=== PATIENT | male | born 1950 | race Caucasian/White ===

== ENCOUNTER 2022-02-13 07:46 | Outpatient (CLI) | payer MEDICARE, SELFPAY ==
--- NOTE | 2022-02-13 07:57 | USCV_ITS ---
Freddy Eagle Age: 71 Gender: M : 1950 Exam Date: 02/13/2022 07:59 Ordering Phys: Karla Frazier MD Technologist: [place] [facility] [place] HISTORY: Diameter (cm) AP x Transverse x Length Velocity (cm/s) Waveform Prox Aorta: x x Mid Aorta: 1.87 x 2.06 x Triphasic Distal Aorta: 1.69 x 1.78 x Triphasic Right Iliac Prox: 1.04 x 1.28 x Triphasic Left Iliac Prox: 1.11 x 1.17 x Triphasic Stent Prox Landing x x Aneurysmal Sac Max x x Lt Lat Sac Dim Rt Lat Sac Dim Stent Dist Landing x x Right Iliac Stent x x Left Iliac Stent x x Right Renal Art Left Renal Art FINDINGS: normal screening ao, prx ao not seen due to gas CONCLUSIONS No evidence of abdominal aortic or bilateral iliac aneurysm. Proximal aortal not well visualized due to bowel gas Franco Fragoso MD (Electronically Signed) Final Date: 13 February 2022 18:01 S
== END 2022-02-13 07:47 | disposition home or self-care (01) ==
LOC: RAD 07:47
PROVIDERS: PCP Family Medicine; Visit Provider Family Medicine
DX: Z13.6 Encounter for screening for cardiovascular disorders (principal)
CPT/HCPCS: 76706

== ENCOUNTER 2022-03-15 11:17 | Observation (INO) | payer MEDICARE, SELFPAY ==
[2022-03-15] VITALS (25 sets, daily range): BP systolic 125–224; BP diastolic 69–94; PULSE 62–99; RESP 14–30; TEMP 36.4–39; O2SAT 91–100; BMI 30.7
--- NOTE | 2022-03-15 11:42 | ECG_ITS ---
[facility] Test Date: 2022-03-15 Pat Name: Freddy Eagle Department: Room: Gender: Male Territory Account Manager: : 1950 Requested By: Raciel Soliman Order Number: [id number] Oh MD: Ellie Bailey M.D. Measurements Intervals [place] Rate: 64 P: 48 [place]: 188 QRS: 5 QRSD: 87 T: -10 QT: 414 QTc: 430 Interpretive Statements SINUS RHYTHM WITH FREQUENT VENTRICULAR PREMATURE COMPLEXES POSSIBLE LEFT ATRIAL ENLARGEMENT [-0.1mV P-WAVE IN V1/V2] POSSIBLE RIGHT VENTRICULAR CONDUCTION DELAY [RSR (QR) IN V1/V2] NONSPECIFIC T-WAVE ABNORMALITY ABNORMAL RHYTHM ECG Compared to ECG 08/03/2014 05:31:35 Ventricular premature complex(es) now present T-wave abnormality now present Electronically Signed On 03-16-2022 12:33:15 PRINT CUTTER by Ellie Bailey M.D. [email or web address].[employer]/store/NU/[id number] f
--- NOTE | 2022-03-15 11:53 | CT_ITS ---
WS: [id number] CT ABDOMEN AND PELVIS WITH CONTRAST HISTORY: RLQ abdominal pain TECHNIQUE: Imaging performed of the abdomen and pelvis with IV contrast. Single phase imaging of the abdomen. Coronal and sagittal reformats are submitted. All CT scans at [facility] use at [address] [facility] one of these dose optimization techniques: automated exposure control; mA and/or kV adjustment per patient size (includes targeted exams where dose is matched to clinical indication); or iterative re construction. IV CONTRAST: Omnipaque 350; 100 mL IV. Oral contrast: No DLP: 774.83 mGy.cm COMPARISON: None available. Lower thorax: Lung bases are clear. Heart is normal size. Moderate-sized hiatal hernia. Liver/biliary system: Normal size with no intrahepatic dilatation. Gallbladder: Normal. No gallstones or wall thickening. No pericholecystic fluid. Pancreas: Normal size pancreas and pancreatic duct. No adjacent inflammation. Spleen: Normal size spleen. No mass or infarct. Adrenal glands: Normal. Right kidney: Too small to characterize hypodensities. No obstruction or solid mass. Left kidney: Tiny cortical hypodensities. No obstruction or mass. Aorta: Mild atherosclerosis with no aneurysm. Lymphadenopathy: None. Free fluid: None. GI tract: Acute inflammatory process in the RIGHT lower quadrant. The appendix is dilated measuring u p to 1.3 cm in diameter with moderate periappendiceal inflammatory changes. At the base of the append ix there is a 3 mm calcification. At the base of the appendix there is inflammatory process in the vi sualized cecum and mild thickening of the distal terminal ilium. No abscess or free air. Numerous diverticula throughout the colon. Mildly tortuous colon. Abdominal wall: Unremarkable abdominal wall. No hernia. Pelvis: Well-distended urinary bladder. Bilateral inguinal canals are patent and contains fat. Mild p rostate enlargement. Bones: Unremarkable. CT/CT abdomen pelvis w con* [id number] IMPRESSION: 1. Acute appendicitis with significant periappendiceal inflammatory changes. N o abscess. Small appendicolith at the base of the appendix with associated mild inflammation involving the terminal ilium and also the adjacent cecum. 2. Moderate size hiatal hernia. Notified Raciel Soliman at 03/15/2022 2:36 PM.
--- NOTE | 2022-03-15 11:57 | ED_ITS ---
HPI - Abdominal Pain General: Chief Complaint: Abdominal Pain Stated Complaint: abd/chest pain Time Seen by Provider: 03/15/22 11:44 History of Present Illness: 71-year-old male presents emergency department chief complaint of 2 to 3-day history of progressive abdominal pain that init iated around his umbilicus that is now in the right lower quadrant. Patient reports he has some mild nausea with the pain does not report any diarrhea or constipation reports no fevers or chills. Patient does report he still has his appendix reports no prior history of any intra-abdominal surgeries. Patient presents with his to the ER for further assessment management. Associated Symptoms: Reports heartburn and nausea; Denies chills and fever(s) Review of Systems Const: Denies: fever(s) or chills Card: Denies: chest pain, irregular heart rhythm, swelling of feet/ankles, lightheadedness or dyspnea on exertion Resp: Denies: non-productive cough or wheezing GI: Reports: abdominal pain, nausea and heartburn Musc: Reports: joint pain; Denies: back pain Neuro: Denies: headache(s) or dizziness [place]/Lymph: Denies: easy bruising or easy bleeding PFSH ED PFSH: Medical History Glucose intolerance Myocardial infarction Surgical History S/P PTCA (percutaneous transluminal coronary angioplasty) Family History Other Cancer Social History Smoking and tobacco status: former smoker Household members: spouse Marital status: service: No Current occupational status: retired Current occupation: FIRE DEPARTMENT Physical Exam Const: COMMON NORMALS: patient oriented x3 and healthy appearing; apparent distress (Patient appears to be in moderate distress due to pain) HENMT: COMMON NORMALS: normocephalic and atraumatic HEAD & SCALP: normocephalic and atraumatic Eye: COMMON NORMALS: Equal, round and reactive pupils present and EOMs intact bilaterally PUPIL: Yes Equal, round and reactive pupils present Neck/C-Spine: COMMON NORMALS: full ROM, supple and no JVD Lymph: LYMPHATIC: no lymphadenopathy noted Chest: COMMONS NORMALS: normal inspection of the chest and normal palpation of entire chest wall Resp: COMMON NORMALS: normal respiratory effort, No retractions and clear to auscultation bilaterally EFFORT & INSPECTION: Yes able to speak in complete sentences and Yes symmetric chest movement AUSCULTATION: clear to auscultation bilaterally Cardio: COMMON NORMALS: no JVD, regular rate and regular rhythm RATE: regular rate RHYTHM: regular rhythm GI: OTHER: Patient is moderate right lower quadrant abdominal pain periumbilical abdominal pain with no radiation to palpation with guarding and rebound tenderness apprec iated positive McBurney's point tenderness appreciated : COMMON NORMALS: Yes no CVA tenderness BLADDER/KIDNEY EXAM: Yes no CVA tenderness Back/Pelvis: COMMON NORMALS: no CVA tenderness Extremity: COMMON NORMALS: normal to inspection and full ROM Neuro: COMMON NORMALS: patient oriented x3, CN's II-XII intact bilaterally, moves all extremities and no focal motor deficits Psych: COMMON NORMALS: mental status grossly normal, Normal thought process present, cooperative and normal affect THOUGHT PROCESS: Normal thought process present Skin: COMMON NORMALS: no rashes or lesions noted GENERAL SKIN EXAM: no rashes or lesions noted Course Vital Signs: Vital signs: Vital Signs Temperature 97.6 F 03/15/22 11:28 Pulse Rate 82 03/15/22 14:45 Respiratory Rate 20 H 03/15/22 14:44 Blood Pressure 170/85 03/15/22 11:28 Pulse Oximetry 95 03/15/22 14:45 Oxygen Delivery Me thod 03/15/22 14:45 MDM - Abdominal Pain Medical Decision Making Due to the patient's symptoms and condition IV will be established labwork im aging will be obtained medication will provide if the patient's pain and nausea CT imaging with labwork will be obtained to further rule out potential underlying concerns of acute appendicitis versus other intraperitoneal issue, will continue to follow Patient was found to have acute appendicitis 1.3 mm dilated appendix with appendicolith at the base with surrounding inflammatory change discussed patient's case with Dr. Floyd will be taking him to surgery patient was provided Zosyn prior to the formal CT results in whichhe was also provided several doses of IV pain medications. Lab Data 03/15/22 12:20 03/15/22 12:20 Labs/Radiology: Radiology Impressions Abdomen/Pelvis CT 03/15/22 11:53 IMPRESSION: 1. Acute appendicitis with significant periappendiceal inflammatory changes. No abscess. Small appendicolith at the base of the appendix with associated mild inflammation involving the terminal ilium and also the adjacent cecum. 2. Moderate size hiatal hernia. Notified Raciel Soliman at 03/15/2022 2:36 PM. Laboratory Results WBC 16.7 10^3/uL (4.0-10.0) H 03/15/22 12:20 RBC 4.75 10^6/uL (4.1-5.3) 03/15/22 12:20 Hgb 14.3 g/dL (11.7-16.6) 03/15/22 12:20 Hct 44.5 % (42.0-52.0) 03/15/22 12:20 MCV 93.7 fl (80-94) 03/15/22 12:20 MCH 30.1 pg (28.0-34.0) 03/15/22 12:20 MCHC 32.1 g/dL (30.0-36.0) 03/15/22 12:20 RDW 12.1 % (12.1-15.1) 03/15/22 12:20 Plt Count 273 10^3/cmm (130-400) 03/15/22 12:20 MPV 9.4 fL (7.4-10.4) 03/15/22 12:20 Neut % (Auto) 88.1 % 03/15/22 12:20 Lymph % (Auto) 7.7 % 03/15/22 12:20 [place] % (Auto) 3.5 % 03/15/22 12:20 Eos % (Auto) 0.0 % 03/15/22 12:20 Baso % (Auto) 0.2 % 03/15/22 12:20 Neut # (Auto) 14.73 10^3/uL (1.8-7.7) H 03/15/22 12:20 Lymph # (Auto) 1.3 10^3/uL (0.8-4.8) 03/15/22 12:20 [place] # (Auto) 0.6 10^3/uL (0.2-0.9) 03/15/22 12:20 Eos # (Auto) 0.0 10^3/uL (0.0-0.8) 03/15/22 12:20 Baso # (Auto) 0.0 10^3/uL (0.0-0.1) 03/15/22 12:20 Nucleated RBC % (auto) 0 % 03/15/22 12:20 Nucleated RBCs # 0.0 /100WBC 03/15/22 12:20 Sodium 138 mmol/L (136-145) 03/15/22 12:20 Potassium 4.4 mmol/L (3.5-5.1) 03/15/22 12:20 Chloride 103 mmol/L (98-107) 03/15/22 12:20 Carbon Dioxide 20 mmol/L (22-29) L 03/15/22 12:20 Anion Gap 19.4 (5-19) H 03/15/22 12:20 BUN 22 mg/dL (8-23) 03/15/22 12:20 Creatinine 0.7 mg/dL (0.7-1.2) 03/15/22 12:20 GFR Calculation 111.8 mL/min (90-130) 03/15/22 12:20 Glucose 136 mg/dL (65-115) H 03/15/22 12:20 Calculated Osmolality 291 mOsm/kg (285-295) 03/15/22 12:20 Lactate 3.0 mmol/L (0.5-2.2) H 03/15/22 12:20 Calcium 9.7 mg/dL (8.5-10.5) 03/15/22 12:20 Total Bilirubin 0.6 mg/dL (0.15-1.2) 03/15/22 12:20 AST 20 U/L (0-40) 03/15/22 12:20 ALT 12 U/L (0-41) 03/15/22 12:20 Alkaline Phosphatase 93 U/L (40-130) 03/15/22 12:20 Troponin T Baseline 8 ng/L (0-15) 03/15/22 12:20 Troponin T 120 Minute 7.54 ng/L (0-15) 03/15/22 13:55 Delta Troponin T -0.46 ABS# (0-10) L 03/15/22 13:55 C-Reactive Protein 23.2 mg/L (0.0-4.9) H 03/15/22 12:20 NT-Pro-B Natriuret Pep 165 pg/mL (0-125) H 03/15/22 12:20 Total Protein 7.2 g/dL (6.6-8.7) 03/15/22 12:20 Albumin 4.5 g/dL (3.5-5.2) 03/15/22 12:20 Globulin 2.7 g/dL (1.3-4.6) 03/15/22 12:20 Lipase 19 U/L (13-60) 03/15/22 12:20 Urine Color Yellow (Yellow) 03/15/22 14:09 Urine Appearance Clear (CLEAR) 03/15/22 14:09 Urine pH 5 (5-7) 03/15/22 14:09 Ur Specific [place] 1.025 (1.005-1.030) 03/15/22 14:09 Urine Protein Neg (Negative) 03/15/22 14:09 Urine Glucose (UA) Norm (Normal) 03/15/22 14:09 Urine Ketones Negative (Negative) 03/15/22 14:09 Urine Blood Neg (Negative) 03/15/22 14:09 Urine Nitrate Negative (Negative) 03/15/22 14:09 Urine Bilirubin Neg (Negative) 03/15/22 14:09 Urine Urobilinogen Norm mg/dL (Negative) 03/15/22 14:09 Ur Leukocyte Esterase Negative (Negative) 03/15/22 14:09 Discharge Plan Discharge Patient Disposition: Admitted As Inpatient Clinical Impression: Acute appendicitis Condition: Stable Coding Level of Care Code ED Supply Tech for Mindyg Fwd Exam Comprehensive
[2022-03-15] MEDS: fentaNYL 50 mcg/mL INJ 2mL IVP (12:12)
[2022-03-15] MEDS: ondansetron 2 mg/ML SDV 2 mL 4 MG IVP (12:14)
[2022-03-15] MEDS: sodium chloride 0.9% 500 ML IV (12:16)
[2022-03-15 12:30] LABS: Basophils % 0.2 %; Hematocrit 44.5 % (42.0-52.0); Hemoglobin 14.3 g/dL (11.7-16.6); Lymphocytes # 1.3 10^3/uL (0.8-4.8); Lymphocytes % 7.7 %; Mean Corpuscular HGB Conc 32.1 g/dL (30.0-36.0); Mean Corpuscular Hemoglobin 30.1 pg (28.0-34.0); Mean Corpuscular Volume 93.7 fl (80-94); Mean Platelet Volume 9.4 fL (7.4-10.4); Monocytes # 0.6 10^3/uL (0.2-0.9); Monocytes % 3.5 %; Neutrophils # 14.73 10^3/uL (1.8-7.7); Neutrophils % 88.1 %; Nucleated Red Blood Cells % 0 %; Platelet Count 273 10^3/cmm (130-400); Red Blood Count 4.75 10^6/uL (4.1-5.3); Red Cell Distribution Width 12.1 % (12.1-15.1); White Blood Count 16.7 10^3/uL (4.0-10.0)
[2022-03-15 12:57] LABS: Troponin(5th) Baseline 8 ng/L (0-15)
[2022-03-15 13:05] LABS: Alanine Aminotransferase 12 U/L (0-41); Albumin Level 4.5 g/dL (3.5-5.2); Alkaline Phosphatase 93 U/L (40-130); Blood Urea Nitrogen 22 mg/dL (8-23); C Reactive Protein 23.2 mg/L (0.0-4.9); Calcium 9.7 mg/dL (8.5-10.5); Carbon Dioxide 20 mmol/L (22-29); Chloride 103 mmol/L (98-107); Globulin 2.7 g/dL (1.3-4.6); Glomerular Filtration Rate 111.8 mL/min (90-130); Glucose 136 mg/dL (65-115); Lipase 19 U/L (13-60); NT Pro B Type Natriuretic Pept 165 pg/mL (0-125); Osmolality Calculated 291 mOsm/kg (285-295); Sodium 138 mmol/L (136-145); Total Bilirubin 0.6 mg/dL (0.15-1.2); Total Protein 7.2 g/dL (6.6-8.7)
[2022-03-15 13:09] LABS: Anion Gap 19.4 (5-19); Aspartate Amino Transferase 20 U/L (0-40); Potassium 4.4 mmol/L (3.5-5.1)
[2022-03-15] MEDS: morphine 4 mg/mL SDV 1 mL IVP (13:09)
[2022-03-15] MEDS: fentaNYL 50 mcg/mL INJ 2mL 86.2 MCG IVP (13:49)
[2022-03-15 14:13] LABS: Add Urine Microscopic? NO; Charge for UA Resulting for Rev
[2022-03-15 14:14] LABS: Bilirubin Urine Neg (Negative); Blood Urine Neg (Negative); Glucose Urine UA Norm (Normal); Ketones Urine Negative (Negative); Leukocyte Esterase Urine Negative (Negative); Nitrate Urine Negative (Negative); Protein Urine Neg (Negative); Specific Gravity, Urine 1.025 (1.005-1.030); Urine Appearance Clear (CLEAR); Urine Color Yellow (Yellow); Urobilinogen Urine Norm (Negative); pH Urine 5 (5-7)
[2022-03-15] MEDS: iohexol 350 mg/mL 500 mL Btl (per mL) IV (14:23)
[2022-03-15] MEDS: piperacillin-tazobactam 4.5 GM in sodium chloride 0.9% (plus) 50 ML IV (14:30)
--- NOTE | 2022-03-15 14:32 | ECG_ITS ---
[facility] Test Date: 2022-03-15 Pat Name: Freddy Eagle Department: Room: Gender: Male Aml Analyst: : 1950 Requested By: Raciel Soliman Order Number: [id number] Oh MD: Ellie Bailey M.D. Measurements Intervals [place] Rate: 90 P: 130 [place]: 177 QRS: 180 QRSD: 89 T: 136 QT: 332 QTc: 407 Interpretive Statements SINUS RHYTHM ARM LEADS REVERSED [INVERTED P AND QRS IN I] Compared to ECG 03/15/2022 11:42:15 Ventricular premature complex(es) no longer present T-wave abnormality no longer present Electronically Signed On 03-16-2022 12:45:23 ROPE COILING MACHINE OPERATOR by Ellie Bailey M.D. [email or web address]/[id number]
[2022-03-15] MEDS: HYDROmorphone 1 mg/mL INJ 1 mL IVP (14:44)
[2022-03-15 14:59] LABS: Troponin 5 2HR 7.54 ng/L (0-15)
[2022-03-15 15:09] LABS: Troponin 5 2HR Delta -0.46 ABS# (0-10)
--- NOTE | 2022-03-15 15:27 | ANES.PREANE2 ---
Pre-Anesthetic Assessment Height/Weight: Height 1.68 m Weight 86.183 kg Temp Pulse Resp BP Pulse Ox O2 Del Method 97.6 F 82 20 H 170/85 95 03/15/22 11:28 03/15/22 14:45 03/15/22 14:44 03/15/22 11:28 03/15/22 14:45 03/15/22 14:45 Operation Date: 03/15/22 15:20 Proposed Procedures p Laparoscopic Appendectomy(Not Applicable) - Flynn Floyd DO Familial anesthetic complications: none Was Beta Jazmin taken within 24 hours: Yes Was Clonidine taken within 24 hours: N/A Social No alcohol and No tobacco Exam alert, oriented x 3, clear to auscultation bilaterally and regular rate & rhythm Airway Submandibular: within normal limits Cervical ROM: within normal limits Mallampati: Class II Dentition: false (upper) CV/HEM Coronary Artery Disease (PTCA 2014), Hypertension and Myocardial Infarction Metabolic Hyperlipidemia Anesthetic Plan ASA status: 3E Anesthesia: General (RSI) Medications/Allergies Home Medications Medication Instructions Recorded Confirmed Last Taken Type aspirin 81 mg tablet,delayed 81 mg PO DAILY #90 tabs 01/01/20 03/15/22 03/14/22 Rx release nitroglycerin 0.4 mg sublingual 0.4 mg sublingual Q5M PRN chest 01/01/20 03/15/22 Unknown Rx tablet (Nitrostat) pain #50 tabs clopidogrel 75 mg tablet 75 mg PO DAILY #90 tabs 07/07/20 03/15/22 03/14/22 Rx lisinopril 40 mg tablet 40 mg PO DAILY #90 tabs 07/07/20 03/15/22 03/14/22 Rx metoprolol tartrate 25 mg tablet 25 mg PO BID #180 tabs 07/07/20 03/15/22 03/14/22 Rx simvastatin 40 mg tablet 40 mg PO DAILY #90 tabs 07/07/20 03/15/22 03/14/22 Rx cholecalciferol (vitamin D3) 25 25 mcg PO DAILY 03/15/22 03/15/22 03/14/22 History mcg (1,000 unit) capsule (Vitamin D3) vitamin E 268 mg (400 unit) capsule 268 mg PO DAILY 03/15/22 03/15/22 03/14/22 History Allergies Allergy/AdvReac Type Severity Reaction Status Date / Time No Known Allergies Allergy Verified 03/15/22 13:18 [facility] Anesthesia Medical History Glucose intolerance Myocardial infarction Surgical History S/P PTCA (percutaneous transluminal coronary angioplasty) Family History Other Cancer Social History Smoking and tobacco status: former smoker Household members: spouse Marital status: service: No Current occupational status: retired Current occupation: FIRE DEPARTMENT Data Anesthesia 03/15/22 12:20 03/15/22 12:20 Short CBC 03/15/22 Range/Units 12:20 WBC 16.7 H (4.0-10.0) 10^3/uL Hgb 14.3 (11.7-16.6) g/dL Hct 44.5 (42.0-52.0) % MCV 93.7 (80-94) fl Plt Count 273 (130-400) 10^3/cmm Neut % (Auto) 88.1 % Neut # (Auto) 14.73 H (1.8-7.7) 10^3/uL BMP 03/15/22 12:20 Sodium 138 Potassium 4.4 Chloride 103 Carbon Dioxide 20 L BUN 22 Creatinine 0.7 Glucose 136 H Calcium 9.7 Cardiac Enzymes 03/15/22 03/15/22 03/15/22 Range/Units 12:20 12:20 13:55 Troponin T Baseline 8 (0-15) ng/L Troponin T 120 Minute 7.54 (0-15) ng/L Delta Troponin T -0.46 L (0-10) ABS# NT-Pro-B Natriuret Pep 165 H (0-125) pg/mL Liver Function 03/15/22 Range/Units 12:20 Total Bilirubin 0.6 (0.15-1.2) mg/dL AST 20 (0-40) U/L ALT 12 (0-41) U/L Alkaline Phosphatase 93 (40-130) U/L Albumin 4.5 (3.5-5.2) g/dL Urine 03/15/22 Range/Units 14:09 Urine Color Yellow (Yellow) Urine Appearance Clear (CLEAR) Urine pH 5 (5-7) Ur Specific [place] 1.025 (1.005-1.030) Urine Protein Neg (Negative) Urine Glucose (UA) Norm (Normal) Urine Ketones Negative (Negative) Urine Nitrate Negative (Negative) Urine Bilirubin Neg (Negative) Ur Leukocyte Esterase Negative (Negative) Coags 03/15/22 12:20 C-Reactive Protein 23.2 H Cardiac Studies: No Data to Display
--- NOTE | 2022-03-15 15:38 | PM.HP ---
Providers/Chief Complaint Admitting Physician: Dr. Flynn Floyd DO Primary Care Provider: Karla Frazier MD Chief Complaint: abd/chest pain History of Present Illness Freddy Eagle is a 71 year old male who presented to the hospital with a 2-day history of right lower quadrant abdominal pain. He reports that he has sharp right lower quadrant abdominal pain that does not radiate. Palpation makes pain worse. Nothing makes it better. He does report nausea and vomiting. Denies any fever or chills. He reports diarrhea but denies any hematochezia and/or melena. CT shows acute appendicitis with significant periappendiceal inflammation. Review of Systems General: Reports: 10 or more systems reviewed and unremarkable except in HPI and below Medications/Allergies Home Medications Medication Instructions Recorded Confirmed Last Taken Type aspirin 81 mg tablet,delayed 81 mg PO DAILY #90 tabs 01/01/20 03/15/22 03/14/22 Rx release nitroglycerin 0.4 mg sublingual 0.4 mg sublingual Q5M PRN chest 01/01/20 03/15/22 Unknown Rx tablet (Nitrostat) pain #50 tabs clopidogrel 75 mg tablet 75 mg PO DAILY #90 tabs 07/07/20 03/15/22 03/14/22 Rx lisinopril 40 mg tablet 40 mg PO DAILY #90 tabs 07/07/20 03/15/22 03/14/22 Rx metoprolol tartrate 25 mg tablet 25 mg PO BID #180 tabs 07/07/20 03/15/22 03/14/22 Rx simvastatin 40 mg tablet 40 mg PO DAILY #90 tabs 07/07/20 03/15/22 03/14/22 Rx cholecalciferol (vitamin D3) 25 25 mcg PO DAILY 03/15/22 03/15/22 03/14/22 History mcg (1,000 unit) capsule (Vitamin D3) vitamin E 268 mg (400 unit) capsule 268 mg PO DAILY 03/15/22 03/15/22 03/14/22 History Allergies Allergy/AdvReac Type Severity Reaction Status Date / Time No Known Allergies Allergy Verified 03/15/22 13:18 PFSH Acute PFSH: Medical History Glucose intolerance Myocardial infarction Surgical History S/P PTCA (percutaneous transluminal coronary angioplasty) Family History Other Cancer Social History Smoking and tobacco status: former smoker Household members: spouse Marital status: service: No Current occupational status: retired Current occupation: FIRE DEPARTMENT Vitals/I&O/Wt Last Vital Signs Temp 102.2 F H 03/15/22 15:33 Pulse 81 03/15/22 15:33 Resp 18 03/15/22 15:33 BP 143/86 03/15/22 15:33 Pulse Ox 97 03/15/22 15:33 O2 Del Method 03/15/22 15:33 03/15/22 03/15/22 03/15/22 06:59 14:59 22:59 Intake Total 500 / 500 Balance 500 / 500 Weight last 48 hrs Weight 190 lb Physical Exam Narrative: General : Patient is well developed , no acute distress, oriented x3 Head : Normal cephalic, a-traumatic. Ears : Pinnae and external canal are normal. Hearing is normal. Eyes : PERRLA, Sclera and injection are normal. No conjunctival discharge. Nose : Mucous membranes are without erythema. Throat : buccal mucosa is normal, gums are without significant recession or hypertrophy. Lungs : Equal chest rise bilaterally, no use of accessory muscles, trachea is midline. Cor : Rate and rhythm are normal. Abdomen : Soft, mild distention, tender to palpation right lower quadrant, negative Rovsing's, no g/r/m Extremities : No edema, no cyanosis or clubbing, dorsalis pedis pulses are present bilaterally, non-tender to palpation of calves. Upper extremities are normal bilaterally. Back : non-tender to palpation, no CVA tenderness. Neuro : CN II - XII intact, Upper and lower extremities have equal and full strength Data 03/15/22 12:20 03/15/22 12:20 A&P Assessment and plan (1) Acute appendicitis: Plan Laparoscopic Appendectomy The risks and benefits of the procedure, including but not limited to, bleeding, infection, scar, numbness, pain, damage to surrounding structures, conversion to an open procedure, were explained to the patient. He is understanding of the risks and wishes to proceed. Attestations Medical Necessity Statement*: Patient will require at least 1 night in the hospital for IV antibiotics Coding Level of Care Code Acute Supervisor Extruding Department for Liu Rios Diagnoses Acute appendicitis K35.80
--- NOTE | 2022-03-15 16:33 | P.OP_ITS ---
Operative Report Date of procedure: March 15, 2022 Pre-op diagnosis: Acute appendicitis Post-op diagnosis: other (Acute suppurative appendicitis) Procedure done: Laparoscopic appendectomy Specimens removed/disposition: Appendix Surgeon: Dr. Flynn Floyd DO Anesthesia: General Estimated blood loss (mL): 5 Complications: None apparent Brief History: This is a very pleasant 71-year-old gentleman who came in to the ER and was diagnosed with acute appendicitis. Laparoscopic appendectomy was indicated. The risks and benefits were explained and documented. Procedure: Patient was wheeled into the operative room and placed on the OR table in a supine position. Abdomen was inspected prepped and draped in usual sterile fashion. Time-out was performed and all present were in agreement. A 15 blade scalp was used to make a stab incision in the left upper quadrant and intra- abdominal insufflation was achieved using a Veress needle. After localizing the tissue incisions were made and a 12 millimeter trocar was placed into the umbilicus as well as a 5mm in the right lower quadrant and a 5 mm in the left lower quadrant . The appendix was identified and was severely inflamed and suppurative. I used the Voyant to ligate the mesoappendix at the base. I then used 2 PDS endo-loops to snare the base of the appendix. I then used the Voyant to ligate the appendix distally. The appendix was removed from the abdomen using an Endo-Catch bag through the umbilical incision. I examined the abdomen and no further pathology was identified. Hemostasis was noted. I then closed the umbilical site with a Malachi-Racheal and 0 Vicryl suture in a figure of 8 fashion. All ports removed. Skin was washed and dried. Incisions were closed with 4 O Vicryl in a subcuticular interrupted fashion. Skin glue was applied. Patient tolerated the procedure well.
[2022-03-15] MEDS: HYDROmorphone 1 mg/mL INJ 1 mL 0.5 MG IVP ×2 (17:00→17:09)
[2022-03-15] MEDS: HYDROcodone-acetaminophen 5-325 mg Tablet 1 TAB PO (18:28)
[2022-03-15] MEDS: pantoprazole 40 mg SDV IVP (18:29)
[2022-03-15] MEDS: heparin 5,000 unit/mL INJ 1 mL 5000 UNIT SUBCUT (18:29)
[2022-03-15] MEDS: sodium chloride 0.9% 1,000 ML 100 ML IV (18:47)
[2022-03-15] MEDS: ketorolac 30 mg/mL INJ IVP (21:25)
--- NOTE | 2022-03-15 21:38 | PC.NURSE ---
1800 Patient recieved from PACU patient on streatcher and transferred to bed with min assist. Vital signs obtained and assessment completed see flow sheets. patient resting quietly
[2022-03-16] VITALS (8 sets, daily range): BP systolic 120–158; BP diastolic 67–79; PULSE 77–90; RESP 16–18; TEMP 36.7–37.4; O2SAT 90–95
[2022-03-16] MEDS: lisinopril 20 mg Tablet 40 MG PO (01:45)
[2022-03-16] MEDS: heparin 5,000 unit/mL INJ 1 mL 5000 UNIT SUBCUT ×2 (01:45→08:38)
[2022-03-16] MEDS: HYDROcodone-acetaminophen 5-325 mg Tablet 1 TAB PO ×2 (01:50→11:30)
[2022-03-16] MEDS: sodium chloride 0.9% 1,000 ML 100 ML IV (04:16)
[2022-03-16] MEDS: ketorolac 30 mg/mL INJ IVP (05:09)
--- NOTE | 2022-03-16 06:53 | PC.NURSE ---
Report given to Janine RENAE at this time
[2022-03-16 08:25] LABS: Basophils % 0.2 %; Hematocrit 37.7 % (42.0-52.0); Hemoglobin 12.2 g/dL (11.7-16.6); Lymphocytes # 1.6 10^3/uL (0.8-4.8); Lymphocytes % 12.3 %; Mean Corpuscular HGB Conc 32.4 g/dL (30.0-36.0); Mean Corpuscular Hemoglobin 30.1 pg (28.0-34.0); Mean Corpuscular Volume 93.1 fl (80-94); Mean Platelet Volume 9.4 fL (7.4-10.4); Monocytes # 0.7 10^3/uL (0.2-0.9); Monocytes % 5.2 %; Neutrophils # 10.45 10^3/uL (1.8-7.7); Neutrophils % 81.8 %; Nucleated Red Blood Cells % 0 %; Platelet Count 240 10^3/cmm (130-400); Red Blood Count 4.05 10^6/uL (4.1-5.3); Red Cell Distribution Width 12.7 % (12.1-15.1); White Blood Count 12.8 10^3/uL (4.0-10.0)
[2022-03-16] MEDS: piperacillin-tazobactam 3.375 GM in sodium chloride 0.9% (plus) 50 ML IV (08:39)
[2022-03-16 08:55] LABS: Anion Gap 14.6 (5-19); Blood Urea Nitrogen 19 mg/dL (8-23); Calcium 8.4 mg/dL (8.5-10.5); Carbon Dioxide 23 mmol/L (22-29); Chloride 102 mmol/L (98-107); Glomerular Filtration Rate 95.8 mL/min (90-130); Glucose 142 mg/dL (65-115); Osmolality Calculated 287 mOsm/kg (285-295); Potassium 3.6 mmol/L (3.5-5.1); Sodium 136 mmol/L (136-145)
--- NOTE | 2022-03-16 11:25 | P.DS_ITS ---
Discharge Providers Date of Admission: 03/15/22 17:10 Date of Discharge: March 16, 2022 Attending Provider at Admission: Flynn Floyd DO Attending Provider at Discharge: Flynn Floyd DO Primary Care Provider: Karla Frazier MD Diagnoses at Discharge Discharge Diagnosis (1) Acute appendicitis: Status: Acute Reason for Visit Reason for Visit: abd/chest pain Hospital Course Hospital Course This is a very pleasant 71-year-old gentleman who came in and was diagnosed with acute appendicitis. He underwent laparoscopic appendectomy and was discharged home the following day in good condition. Physical Exam Narrative: General : Patient is well developed , no acute distress, oriented x3 Head : Normal cephalic, a-traumatic. Ears : Pinnae and external canal are normal. Hearing is normal. Eyes : PERRLA, Sclera and injection are normal. No conjunctival discharge. Nose : Mucous membranes are without erythema. Throat : buccal mucosa is normal, gums are without significant recession or hypertrophy. Lungs : Equal chest rise bilaterally, no use of accessory muscles, trachea is midline. Cor : Rate and rhythm are normal. Abdomen : Soft, mild distention, appropriately tender, no g/r/m Incisions intact without erythema or exudate Extremities : No edema, no cyanosis or clubbing, dorsalis pedis pulses are present bilaterally, non-tender to palpation of calves. Upper extremities are normal bilaterally. Back : non-tender to palpation, no CVA tenderness. Neuro : CN II - XII intact, Upper and lower extremities have equal and full strength Discharge Data Studies Completed and Pending Completed Studies During Hospitalization Category Date Time Status CT abdomen pelvis w con* [id number] Stat Cat Scan 03/15/22 11:53 Completed Pending at discharge Category Date Time Status Basic Metabolic Panel AM LABS Lab 03/17/22 04:00 Uncollected Basic Metabolic Panel AM LABS Lab 03/18/22 04:00 Uncollected Complete Blood Count w/Auto AM LABS Lab 03/17/22 04:00 Uncollected Complete Blood Count w/Auto AM LABS Lab 03/18/22 04:00 Uncollected Pathology: Surgical [PTH] Routine Pth 03/15/22 17:17 Ordered Radiology Impressions Abdomen/Pelvis CT 03/15/22 11:53 IMPRESSION: 1. Acute appendicitis with significant periappendiceal inflammatory changes. No abscess. Small appendicolith at the base of the appendix with associated mild inflammation involving the terminal ilium and also the adjacent cecum. 2. Moderate size hiatal hernia. Notified Raciel Soliman at 03/15/2022 2:36 PM. Laboratory Results WBC 12.8 10^3/uL (4.0-10.0) H 03/16/22 07:39 RBC 4.05 10^6/uL (4.1-5.3) L 03/16/22 07:39 Hgb 12.2 g/dL (11.7-16.6) 03/16/22 07:39 Hct 37.7 % (42.0-52.0) L 03/16/22 07:39 MCV 93.1 fl (80-94) 03/16/22 07:39 MCH 30.1 pg (28.0-34.0) 03/16/22 07:39 MCHC 32.4 g/dL (30.0-36.0) 03/16/22 07:39 RDW 12.7 % (12.1-15.1) 03/16/22 07:39 Plt Count 240 10^3/cmm (130-400) 03/16/22 07:39 MPV 9.4 fL (7.4-10.4) 03/16/22 07:39 Neut % (Auto) 81.8 % 03/16/22 07:39 Lymph % (Auto) 12.3 % 03/16/22 07:39 [place] % (Auto) 5.2 % 03/16/22 07:39 Eos % (Auto) 0.0 % 03/16/22 07:39 Baso % (Auto) 0.2 % 03/16/22 07:39 Neut # (Auto) 10.45 10^3/uL (1.8-7.7) H 03/16/22 07:39 Lymph # (Auto) 1.6 10^3/uL (0.8-4.8) 03/16/22 07:39 [place] # (Auto) 0.7 10^3/uL (0.2-0.9) 03/16/22 07:39 Eos # (Auto) 0.0 10^3/uL (0.0-0.8) 03/16/22 07:39 Baso # (Auto) 0.0 10^3/uL (0.0-0.1) 03/16/22 07:39 Nucleated RBC % (auto) 0 % 03/16/22 07:39 Nucleated RBCs # 0.0 /100WBC 03/16/22 07:39 Sodium 136 mmol/L (136-145) 03/16/22 07:39 Potassium 3.6 mmol/L (3.5-5.1) 03/16/22 07:39 Chloride 102 mmol/L (98-107) 03/16/22 07:39 Carbon Dioxide 23 mmol/L (22-29) 03/16/22 07:39 Anion Gap 14.6 (5-19) 03/16/22 07:39 BUN 19 mg/dL (8-23) 03/16/22 07:39 Creatinine 0.8 mg/dL (0.7-1.2) 03/16/22 07:39 GFR Calculation 95.8 mL/min (90-130) 03/16/22 07:39 Glucose 142 mg/dL (65-115) H 03/16/22 07:39 Calculated Osmolality 287 mOsm/kg (285-295) 03/16/22 07:39 Lactate 3.0 mmol/L (0.5-2.2) H 03/15/22 12:20 Calcium 8.4 mg/dL (8.5-10.5) L 03/16/22 07:39 Total Bilirubin 0.6 mg/dL (0.15-1.2) 03/15/22 12:20 AST 20 U/L (0-40) 03/15/22 12:20 ALT 12 U/L (0-41) 03/15/22 12:20 Alkaline Phosphatase 93 U/L (40-130) 03/15/22 12:20 Troponin T Baseline 8 ng/L (0-15) 03/15/22 12:20 Troponin T 120 Minute 7.54 ng/L (0-15) 03/15/22 13:55 Delta Troponin T -0.46 ABS# (0-10) L 03/15/22 13:55 C-Reactive Protein 23.2 mg/L (0.0-4.9) H 03/15/22 12:20 NT-Pro-B Natriuret Pep 165 pg/mL (0-125) H 03/15/22 12:20 Total Protein 7.2 g/dL (6.6-8.7) 03/15/22 12:20 Albumin 4.5 g/dL (3.5-5.2) 03/15/22 12:20 Globulin 2.7 g/dL (1.3-4.6) 03/15/22 12:20 Lipase 19 U/L (13-60) 03/15/22 12:20 Urine Color Yellow (Yellow) 03/15/22 14:09 Urine Appearance Clear (CLEAR) 03/15/22 14:09 Urine pH 5 (5-7) 03/15/22 14:09 Ur Specific [place] 1.025 (1.005-1.030) 03/15/22 14:09 Urine Protein Neg (Negative) 03/15/22 14:09 Urine Glucose (UA) Norm (Normal) 03/15/22 14:09 Urine Ketones Negative (Negative) 03/15/22 14:09 Urine Blood Neg (Negative) 03/15/22 14:09 Urine Nitrate Negative (Negative) 03/15/22 14:09 Urine Bilirubin Neg (Negative) 03/15/22 14:09 Urine Urobilinogen Norm mg/dL (Negative) 03/15/22 14:09 Ur Leukocyte Esterase Negative (Negative) 03/15/22 14:09 Procedures Performed Laparoscopic Appendectomy. Vitals Last Vital Signs Temp 98.3 F 03/16/22 08:00 Pulse 80 03/16/22 08:00 Resp 17 03/16/22 08:00 BP 120/67 03/16/22 08:00 Pulse Ox 92 03/16/22 08:00 O2 Del Method 03/16/22 08:00 O2 Flow Rate 3 03/16/22 01:02 Discharge Plan Discharge Patient Disposition: Home Condition: Stable Prescriptions: New hydrocodone-acetaminophen 7.5-325 mg tablet 1 tab PO Q6H PRN (Reason: pain) Qty: 20 0RF amoxicillin-pot clavulanate 875-125 mg tablet 1 tab PO BID Qty: 26 0RF Colace 100 mg capsule 100 mg PO BID Qty: 10 0RF Continued lisinopril 40 mg tablet 40 mg PO DAILY Qty: 90 3RF metoprolol tartrate 25 mg tablet 25 mg PO BID Qty: 180 3RF simvastatin 40 mg tablet 40 mg PO DAILY Qty: 90 3RF nitroglycerin [Nitrostat] 0.4 mg tablet, sublingual 0.4 mg SUBLINGUAL Q5M PRN (Reason: chest pain) Qty: 50 2RF Rx Instructions: do not exceed 3 doses per episode aspirin 81 mg tablet,delayed release (DR/EC) 81 mg PO DAILY Qty: 90 3RF vitamin E 268 mg (400 unit) Capsule 268 mg PO DAILY Vitamin D3 25 mcg (1,000 unit) Capsule 25 mcg PO DAILY Held clopidogrel 75 mg tablet 75 mg PO DAILY Qty: 90 3RF Hold Instructions: Resume on 03/18/22. Discharge Orders: Discharge Order (Routine); Ordered 03/16/22 Ordered By: Flynn Floyd Referrals: Flynn Floyd DO [Physician] - 2 weeks (Please call tomorrow morning to schedule a hospital follow up within 2 weeks.) Karla Frazier MD [Primary Care Provider] - 4-7 days Discharge Diet: Advance as tolerated Discharge Activity: Resume usual activity Patient Instructions: Hydrocodone/Acetaminophen (By mouth), Amoxicillin/Clavu lanate Potassium (By mouth), Laxative, Stool Softeners (By mouth), Laparoscopic Appendectomy (GEN), Opioid Safety Activity Restrictions/Additional Instructions: Do not soak incisions underwater for 2 weeks. Shower daily Discharge Attestations Time Spent in Discharge Care*: less than 30 min Quality Metrics Clinical Quality Measures [ No reported AMI, CVA or VTE this stay] Coding Level of Care Code Acute Chg FW DC note Diagnoses Acute appendicitis K35.80
--- NOTE | 2022-03-16 13:05 | ANE.PACU2 ---
Inpatient post-anesthesia follow up: Airway intact: Yes Vital signs: Temperature 98.1 F Pulse Rate 77 Respiratory Rate 17 Blood Pressure 144/71 Pulse Oximetry 92 Oxygen Delivery Me thod [ Room Air Current Rate & Del caty] Oxygen Delivery Me thod Room Air Oxygen Flow Rate [ Current Rate 2 & Delivery] Oxygen Flow Rate 3 Fraction of Inspir ed Oxygen Hydration adequate: Yes Nausea and vomiting: No Pain level: 3 Mental status: Baseline
--- NOTE | 2022-03-16 13:58 | PC.NURSE ---
5253 discharge instructions and meds for today only sent with patient. patient and voiced understanding
--- NOTE | 2022-03-16 14:04 | PC.NURSE ---
3415 patient discharged to home with patient in stable condition. patient taken to private car per wheelchair accompanied per staff
== END 2022-03-16 13:30 | disposition home or self-care (01) ==
LOC: ER 15:15 → OR 15:21 → MEDSURG 17:11
PROVIDERS: Admitting Provider Surgery; Emergency Provider Emergency Medicine; PCP Family Medicine; Visit Provider Surgery
PROC: 0DTJ4ZZ Resection of Appendix, Percutaneous Endoscopic Approach (ICD-10-PCS; CPT 44970; principal; 2022-03-15 15:00)
DX: K35.33 Acute appendicitis with perforation, localized peritonitis, and gangrene, with abscess (principal); I25.10 Atherosclerotic heart disease of native coronary artery without angina pectoris; I10 Essential (primary) hypertension; I25.2 Old myocardial infarction; E78.5 Hyperlipidemia, unspecified; Z79.82 Long term (current) use of aspirin; Z87.891 Personal history of nicotine dependence
CPT/HCPCS: 44970; 36415; 74177; 80048; 80053; 81003; 83605; 83690; 83880; 84484; 85025; 86140; 88304; 93005; 96365; 96372; 96375; 96376; 99285; C9113; G0378; J0330; J1100; J1170; J1644; J1885; J2250; J2270; J2405; J2543; J2704; J2710; J3010; J3490; J7030; J7040; Q9967

== ENCOUNTER → 2022-03-24 08:10 | Outpatient (BNVA) | payer MEDICARE, SELFPAY | PROVIDERS: PCP Family Medicine; Visit Provider Surgery | DX: Z98.890 Other specified postprocedural states (principal); Z90.49 Acquired absence of other specified parts of digestive tract | CPT/HCPCS: 99024 ==

== ENCOUNTER 2022-03-29 12:05 | Outpatient (CLI) | payer MEDICARE, SELFPAY ==
--- NOTE | 2022-03-29 12:33 | CT_ITS ---
WS: [id number] CT ABDOMEN AND PELVIS WITH CONTRAST HISTORY: ELEVATED WHITE COUNT, S/P APPENDECTOMY, LLQ TECHNIQUE: Imaging performed of the abdomen and pelvis with IV contrast. Single phase imaging of the abdomen. Coronal and sagittal reformats are submitted. All CT scans at [facility] use at [facility] one of these dose optimization techniques: automated exposure control; mA and/or kV adjustment per patient size (includes targeted exams where dose is matched to clinical indication); or iterative re construction. IV CONTRAST: Omnipaque 350; 95 mL IV. Oral contrast: No DLP: 1177.62 mGy.cm COMPARISON: 03/15/2022 Lower thorax: Lung bases are clear. Heart is normal size. Small hiatal hernia. Liver/biliary system: Normal size with no intrahepatic dilatation. Gallbladder: Normal. No gallstones or wall thickening. No pericholecystic fluid. Pancreas: Normal size pancreas and pancreatic duct. No adjacent inflammation. Spleen: Normal size spleen. No mass or infarct. Adrenal glands: Normal. Right kidney: Normal size. A few scattered too small to characterize hypodensities. No obstruction. Left kidney: Normal size. There are a few small scattered hypodensities. No obstruction. Aorta: Mild atherosclerosis with no aneurysm. Lymphadenopathy: None. Free fluid: Tiny amount of free fluid in the pelvis. GI tract: Recent appendectomy. There is an abscess in the RIGHT lower quadrant where the previous acu te appendicitis was identified. Abscess measures 5.2 x 3.8 cm. There is moderate adjacent inflammator y changes within the RIGHT lower quadrant. There are a few very tiny adjacent lymph nodes. Sigmoid di verticulosis without acute diverticulitis. Abdominal wall: Unremarkable abdominal wall. No hernia. Pelvis: Bilateral patent inguinal canals. Tiny amount of free fluid in the pelvis. Bones: Unremarkable. CT/CT abdomen pelvis w con* [id number] IMPRESSION: 1. RIGHT lower quadrant abscess measures 5.2 x 3.8 cm at the site of the recen t appendectomy. Small amount of pericecal inflammatory changes and a few small lymph nodes. 2. Tiny amount of free fluid in the pelvis. Notified Karla Frazier MD at 03/29/2022 1:47 PM.
[2022-03-29] MEDS: iohexol 350 mg/mL 500 mL Btl (per mL) IV (13:23)
== END 2022-03-29 12:06 | disposition home or self-care (01) ==
PROVIDERS: PCP Family Medicine; Visit Provider Family Medicine
DX: D72.829 Elevated white blood cell count, unspecified (principal); Z98.890 Other specified postprocedural states; L02.211 Cutaneous abscess of abdominal wall
CPT/HCPCS: 74177; Q9967

== ENCOUNTER 2022-03-29 14:08 | Inpatient (IN) | payer MEDICARE, SELFPAY ==
[2022-03-29 15:09] VITALS: PULSE 78; TEMP 36.9; O2SAT 95; BMI 28.7
[2022-03-29 15:37] LABS: Add Urine Microscopic? NO; Charge for UA Resulting for Rev
[2022-03-29 15:40] LABS: Bilirubin Urine Neg (Negative); Blood Urine Neg (Negative); Glucose Urine UA Norm (Normal); Ketones Urine Negative (Negative); Leukocyte Esterase Urine Negative (Negative); Nitrate Urine Negative (Negative); Protein Urine Neg (Negative); Urine Appearance Clear (CLEAR); Urine Color Yellow (Yellow); Urobilinogen Urine Norm (Negative); pH Urine 5 (5-7)
[2022-03-29 15:48] LABS: Basophils # 0.1 10^3/uL (0.0-0.1); Basophils % 0.9 %; Eosinophils # 0.2 10^3/uL (0.0-0.8); Eosinophils % 1.4 %; Hematocrit 41.6 % (42.0-52.0); Hemoglobin 13.5 g/dL (11.7-16.6); Mean Corpuscular HGB Conc 32.5 g/dL (30.0-36.0); Mean Corpuscular Hemoglobin 29.7 pg (28.0-34.0); Mean Corpuscular Volume 91.4 fl (80-94); Mean Platelet Volume 8.5 fL (7.4-10.4); Monocytes # 0.8 10^3/uL (0.2-0.9); Monocytes % 7.5 %; Neutrophils # 6.91 10^3/uL (1.8-7.7); Neutrophils % 62.2 %; Nucleated Red Blood Cells % 0 %; Platelet Count 590 10^3/cmm (130-400); Red Blood Count 4.55 10^6/uL (4.1-5.3); Red Cell Distribution Width 12.3 % (12.1-15.1); White Blood Count 11.1 10^3/uL (4.0-10.0)
[2022-03-29 15:54] VITALS: BP 161/90; PULSE 77; O2SAT 97
[2022-03-29 16:12] LABS: Lactic Sepsis W/Reflex 1.4 mmol/L (0.5-2.2)
[2022-03-29 16:13] LABS: Alanine Aminotransferase 27 U/L (0-41); Albumin Level 3.7 g/dL (3.5-5.2); Alkaline Phosphatase 118 U/L (40-130); Anion Gap 14.1 (5-19); Aspartate Amino Transferase 16 U/L (0-40); Blood Urea Nitrogen 18 mg/dL (8-23); Calcium 9.6 mg/dL (8.5-10.5); Carbon Dioxide 27 mmol/L (22-29); Chloride 101 mmol/L (98-107); Globulin 3.4 g/dL (1.3-4.6); Glomerular Filtration Rate 83.7 mL/min (90-130); Glucose 98 mg/dL (65-115); Lipase 30 U/L (13-60); Osmolality Calculated 288 mOsm/kg (285-295); Potassium 4.1 mmol/L (3.5-5.1); Sodium 138 mmol/L (136-145); Total Bilirubin 0.2 mg/dL (0.15-1.2); Total Protein 7.1 g/dL (6.6-8.7)
[2022-03-29 19:06] VITALS: BP 176/111; PULSE 64; RESP 17; O2SAT 99
--- NOTE | 2022-03-29 19:23 | W.ED.GENADLT ---
HPI - General Adult General: Chief complaint: General Medical Stated complaint: abnormal CS Time Seen by Provider: 03/29/22 18:52 Source: patient Mode of arrival: ambulatory Limitations: no limitations History of Present Illness: 71-year-old male states he had appendectomy done on 1123 states over the last 3 to 4 days been having increasing pain in his right lower quadrant he was seen by his PCP on Sunday states that he had an elevated white count so he ordered outpatient CT had a CT abdomen done today that does show an abscess in his right lower quadrant at the appendectomy site. He has had no fever he states the pain is sharp in nature rates it a 4 out of 10. Associated symptoms: Deny chest pain, dyspnea, headache(s) or rash Review of Systems Const: Denies: fever(s), chills, body aches or change in appetite Eyes: Denies: blurry vision or eye discomfort ENMT: Denies: throat pain or dental pain Card: Denies: chest pain Resp: Denies: dyspnea GI: Reports: abdominal pain : Denies: dysuria Musc: Denies: neck pain or back pain Skin/Breast: Denies: rash Neuro: Denies: headache(s) Psych: Denies: depression [place]/Lymph: Denies: easy bruising All/Imm: Denies: urticaria PFSH ED PFSH: Medical History Glucose intolerance Myocardial infarction Surgical History History of laparoscopic appendectomy S/P PTCA (percutaneous transluminal coronary angioplasty) Family History Other Cancer Social History Smoking and tobacco status: former smoker Household members: spouse Marital status: service: No Current occupational status: retired Current occupation: FIRE DEPARTMENT Physical Exam Const: COMMON NORMALS: no acute distress, patient oriented x3 and healthy appearing HENMT: COMMON NORMALS: normocephalic and atraumatic HEAD & SCALP: normocephalic and atraumatic Eye: COMMON NORMALS: Equal, round and reactive pupils present and EOMs intact bilaterally PUPIL: Yes Equal, round and reactive pupils present Neck/C-Spine: COMMON NORMALS: full ROM and supple Chest: COMMONS NORMALS: normal inspection of the chest and normal palpation of entire chest wall Resp: COMMON NORMALS: normal respiratory effort, No retractions, No use of accessory muscles and clear to auscultation bilaterally AUSCULTATION: clear to auscultation bilaterally Cardio: COMMON NORMALS: regular rate, regular rhythm and No murmurs present (Cardio) RATE: regular rate RHYTHM: regular rhythm GI: COMMON NORMALS: Normal to inspection, nondistended, normoactive bowel sounds present, Soft to palpation and no masses PALPATION: Yes Soft to palpation and Yes Tenderness to palpation present (GI) Details: RLQ Extremity: COMMON NORMALS: normal to inspection and full ROM Neuro: COMMON NORMALS: patient oriented x3, moves all extremities and no focal motor deficits Psych: COMMON NORMALS: mental status grossly normal, Normal thought process present and cooperative THOUGHT PROCESS: Normal thought process present Skin: COMMON NORMALS: no rashes or lesions noted and no wounds GENERAL SKIN EXAM: no rashes or lesions noted Course Vital Signs: Vital signs: Vital Signs Temperature 98.5 F 03/29/22 15:09 Pulse Rate 64 03/29/22 19:06 Respiratory Rate 17 03/29/22 19:06 Blood Pressure 176/111 03/29/22 19:06 Pulse Oximetry 99 03/29/22 19:06 Oxygen Delivery Me thod 03/29/22 15:09 MDM - General Adult Medical Decision Making Patient presents here with abdominal pain he does have an intra-abdominal abscess he is nonseptic appearing here did start antibiotics will admit to the hospitalist I did speak to surgeon on-call Dr. Uribe who is consulted. Lab Data 03/29/22 15:30 03/29/22 15:30 Laboratory Results WBC 11.1 10^3/uL (4.0-10.0) H 03/29/22 15:30 RBC 4.55 10^6/uL (4.1-5.3) 03/29/22 15:30 Hgb 13.5 g/dL (11.7-16.6) 03/29/22 15:30 Hct 41.6 % (42.0-52.0) L 03/29/22 15:30 MCV 91.4 fl (80-94) 03/29/22 15:30 MCH 29.7 pg (28.0-34.0) 03/29/22 15:30 MCHC 32.5 g/dL (30.0-36.0) 03/29/22 15:30 RDW 12.3 % (12.1-15.1) 03/29/22 15:30 Plt Count 590 10^3/cmm (130-400) H 03/29/22 15:30 MPV 8.5 fL (7.4-10.4) 03/29/22 15:30 Neut % (Auto) 62.2 % 03/29/22 15:30 Lymph % (Auto) 27.0 % 03/29/22 15:30 [place] % (Auto) 7.5 % 03/29/22 15:30 Eos % (Auto) 1.4 % 03/29/22 15:30 Baso % (Auto) 0.9 % 03/29/22 15:30 Neut # (Auto) 6.91 10^3/uL (1.8-7.7) 03/29/22 15:30 Lymph # (Auto) 3.0 10^3/uL (0.8-4.8) 03/29/22 15:30 [place] # (Auto) 0.8 10^3/uL (0.2-0.9) 03/29/22 15:30 Eos # (Auto) 0.2 10^3/uL (0.0-0.8) 03/29/22 15:30 Baso # (Auto) 0.1 10^3/uL (0.0-0.1) 03/29/22 15:30 Nucleated RBC % (auto) 0 % 03/29/22 15:30 Nucleated RBCs # 0.0 /100WBC 03/29/22 15:30 Sodium 138 mmol/L (136-145) 03/29/22 15:30 Potassium 4.1 mmol/L (3.5-5.1) 03/29/22 15:30 Chloride 101 mmol/L (98-107) 03/29/22 15:30 Carbon Dioxide 27 mmol/L (22-29) 03/29/22 15:30 Anion Gap 14.1 (5-19) 03/29/22 15:30 BUN 18 mg/dL (8-23) 03/29/22 15:30 Creatinine 0.9 mg/dL (0.7-1.2) 03/29/22 15:30 GFR Calculation 83.7 mL/min (90-130) L 03/29/22 15:30 Glucose 98 mg/dL (65-115) 03/29/22 15:30 Calculated Osmolality 288 mOsm/kg (285-295) 03/29/22 15:30 Lactic Acid 1.4 mmol/L (0.5-2.2) 03/29/22 15:30 Calcium 9.6 mg/dL (8.5-10.5) 03/29/22 15:30 Total Bilirubin 0.2 mg/dL (0.15-1.2) 03/29/22 15:30 AST 16 U/L (0-40) 03/29/22 15:30 ALT 27 U/L (0-41) 03/29/22 15:30 Alkaline Phosphatase 118 U/L (40-130) 03/29/22 15:30 Total Protein 7.1 g/dL (6.6-8.7) 03/29/22 15:30 Albumin 3.7 g/dL (3.5-5.2) 03/29/22 15:30 Globulin 3.4 g/dL (1.3-4.6) 03/29/22 15:30 Lipase 30 U/L (13-60) 03/29/22 15:30 Urine Color Yellow (Yellow) 03/29/22 15:25 Urine Appearance Clear (CLEAR) 03/29/22 15:25 Urine pH 5 (5-7) 03/29/22 15:25 Ur Specific [place] 1.010 (1.005-1.030) 03/29/22 15:25 Urine Protein Neg (Negative) 03/29/22 15:25 Urine Glucose (UA) Norm (Normal) 03/29/22 15:25 Urine Ketones Negative (Negative) 03/29/22 15: Urine Blood Neg (Negative) 03/29/22 15:25 Urine Nitrate Negative (Negative) 03/29/22 15:25 Urine Bilirubin Neg (Negative) 03/29/22 15:25 Urine Urobilinogen Norm mg/dL (Negative) 03/29/22 15:25 Ur Leukocyte Esterase Negative (Negative) 12/07/22 15:25 Discharge Plan Discharge Patient Disposition: Admitted As Inpatient Clinical Impression: Intra-abdominal abscess Condition: Stable Prescriptions: No Action clopidogrel 75 mg tablet 75 mg PO DAILY Qty: 90 3RF Hold Instructions: Resume on 03/18/22. lisinopril 40 mg tablet 40 mg PO DAILY Qty: 90 3RF metoprolol tartrate 25 mg tablet 25 mg PO BID Qty: 180 3RF simvastatin 40 mg tablet 40 mg PO DAILY Qty: 90 3RF nitroglycerin [Nitrostat] 0.4 mg tablet, sublingual 0.4 mg SUBLINGUAL Q5M PRN (Reason: chest pain) Qty: 50 2RF Rx Instructions: do not exceed 3 doses per episode aspirin 81 mg tablet,delayed release (DR/EC) 81 mg PO DAILY Qty: 90 3RF vitamin E 268 mg (400 unit) Capsule 268 mg PO DAILY Vitamin D3 25 mcg (1,000 unit) Capsule 25 mcg PO DAILY hydrocodone-acetaminophen 7.5-325 mg tablet 1 tab PO Q6H PRN (Reason: pain) Qty: 20 0RF amoxicillin-pot clavulanate 875-125 mg tablet 1 tab PO BID Qty: 26 0RF Colace 100 mg capsule 100 mg PO BID Qty: 10 0RF Referrals: Karla Frazier MD [Primary Care Provider] - Coding Level of Care Code ED Certified Teacher Assistant for Chg Fwd Exam Comprehensive
--- NOTE | 2022-03-29 19:25 | P.HP_ITS ---
Providers/Chief Complaint Primary Care Provider: Karla Frazier MD Chief Complaint: abnormal CS History of Present Illness Freddy Eagle is a 71 year old male who was admitted on 03/15 by general surgery for management of acute appendicitis, status post laparoscopic appendectomy by Dr. Floyd, he follow-up with Dr. Floyd in the clinic, he was getting Augmentin as well, presenting today after abnormal finding of CT abdomen pelvis, patient was prescribed Augmentin because he was experiencing right lower quadrant pain for last 3 to 4 days, today CT abdomen pelvis was completed that prompted his visit to the ER. Considering that he never felt better after appendectomy, his surgical site was always sore, he never experienced any fever, nausea, vomiting, diarrhea. He has finished his Augmentin course of 2 weeks. Patient takes aspirin and Plavix last coronary artery stent was placed roughly 6 years ago, no active chest pain or shortness of breath, last bowel movement was today which was regular CT abdomen showed right lower quadrant abscess 5 x 3.8 cm RIGHT lower quadrant abscess measures 5.2 x 3.8 cm at the site of the recent appendectomy. Small amount of pericecal inflammatory changes and a few small lymph nodes General surgeon has recommended admitting this patient to hospital service, I have started patient on vancomycin, she has received 1 dose of Zosyn, no active signs of sepsis, I do not see any signs of fever, mild leukocytosis noted Review of Systems Const: Reports: chills Eyes: Denies: change in vision ENMT: Denies: throat pain Card: Denies: chest pain Resp: Denies: dyspnea GI: Reports: abdominal pain : Denies: flank pain Musc: Denies: neck pain Skin/Breast: Denies: rash Neuro: Denies: headache(s) Psych: Denies: anxiety Endo: Denies: polyuria [place]/Lymph: Denies: easy bruising All/Imm: Denies: urticaria Medications/Allergies Home Medications Medication Instructions Recorded Confirmed Last Taken Type aspirin 81 mg tablet,delayed 81 mg PO DAILY #90 tabs 01/01/20 03/24/22 03/14/22 Rx release nitroglycerin 0.4 mg sublingual 0.4 mg sublingual Q5M PRN chest 01/01/20 03/24/22 Unknown Rx tablet (Nitrostat) pain #50 tabs clopidogrel 75 mg tablet 75 mg PO DAILY #90 tabs 07/07/20 03/24/22 03/14/22 Rx lisinopril 40 mg tablet 40 mg PO DAILY #90 tabs 07/07/20 03/24/22 03/14/22 Rx metoprolol tartrate 25 mg tablet 25 mg PO BID #180 tabs 07/07/20 03/24/22 03/14/22 Rx simvastatin 40 mg tablet 40 mg PO DAILY #90 tabs 07/07/20 03/24/22 03/14/22 Rx cholecalciferol (vitamin D3) 25 25 mcg PO DAILY 03/15/22 03/24/22 03/14/22 History mcg (1,000 unit) capsule (Vitamin D3) vitamin E 268 mg (400 unit) capsule 268 mg PO DAILY 03/15/22 03/24/22 03/14/22 History amoxicillin 875 mg-potassium 1 tab PO BID #26 tabs 03/16/22 03/24/22 Unknown Rx clavulanate 125 mg tablet docusate sodium 100 mg capsule 100 mg PO BID #10 caps 03/16/22 03/24/22 Unknown Rx (Colace) hydrocodone 7.5 mg-acetaminophen 1 tab PO Q6H PRN pain #20 tabs 03/16/22 03/24/22 Unknown Rx 325 mg tablet Allergies Allergy/AdvReac Type Severity Reaction Status Date / Time No Known Allergies Allergy Verified 03/29/22 15:09 PFSH Acute PFSH: Medical History Glucose intolerance Myocardial infarction Surgical History History of laparoscopic appendectomy S/P PTCA (percutaneous transluminal coronary angioplasty) Family History Other Cancer Social History Smoking and tobacco status: former smoker Household members: spouse Marital status: service: No Current occupational status: retired Current occupation: FIRE DEPARTMENT Vitals/I&O/Wt Last Vital Signs Temp 98.5 F 03/29/22 15:09 Pulse 64 03/29/22 19:06 Resp 17 03/29/22 19:06 BP 176/111 03/29/22 19:06 Pulse Ox 99 03/29/22 19:06 O2 Del Method 03/29/22 15:09 Weight last 48 hrs Weight 80.739 kg Physical Exam Narrative: Pleasant cooperative elderly male Awake and alert Hemodynamically stable S1, S2 Doing well on room air Abdomen soft, nontender No signs of peritonitis Mild tenderness elicited on deep palpation only right lower quadrant No rebound tenderness guarding or rigidity Patient looks euvolemic Pleasant cooperative Nonfocal neuro exam Data 03/29/22 15:30 03/29/22 15:30 A&P Assessment and plan (1) Intra-abdominal abscess: (2) History of laparoscopic appendectomy: Plan Intra-abdominal abscess Postoperative complication after appendectomy which was done on 03/[address] abdomen pelvis, dimensions noted General surgery on board Surgery in the morning Patient has finished Augmentin 2-week course I will start him on vancomycin and Zosyn No signs of sepsis No signs of peritonitis Blood cultures have been taken Last coronary artery stent was placed 6 years ago it is okay to hold aspirin for 2 days and start aspirin and Plavix 24 to 48 hours after surgery he does not need any preoperative work-up RCRI class II risk N.p.o. DVT prophylaxis SCDs Start anticoagulating agent after surgery I will keep him on D5 normal saline Dilaudid for analgesia Attestations Medical Necessity Statement*: Anticipating more than 2 midnights for management of intra-abdominal abscess Time Spent in Patient Care: 40 Coding Level of Care Code Acute Telephone Service Representative for Liu Rios Diagnoses Intra-abdominal abscess K65.1 History of laparoscopic appendectomy Z90.49
[2022-03-29 19:38] VITALS: BP 168/98; PULSE 69; RESP 17; O2SAT 97
[2022-03-29] MEDS: piperacillin-tazobactam 3.375 GM in sodium chloride 0.9% (plus) 50 ML IV (19:58)
--- NOTE | 2022-03-29 20:01 | PC.NURSE ---
Blood cultures were taken first then Zosyn 3.375 IV was administered after cultures were taken.
[2022-03-29 20:26] VITALS: BP 191/110; PULSE 84; RESP 15; TEMP 36.7; O2SAT 97
[2022-03-29 20:30] LABS: Procalcitonin 0.04 ng/mL (0-0.5)
[2022-03-29] MEDS: dextrose 5%-sod chloride 0.9% 1,000 ML 75 ML IV (20:47)
[2022-03-29] MEDS: vancomycin 1,000 MG in sodium chloride 0.9% 250 ML 250 MG IV (20:48)
[2022-03-29] MEDS: hyDRALAzine 20 mg/mL INJ 1 mL 10 MG IVP (20:48)
[2022-03-30] VITALS (32 sets, daily range): BP systolic 130–188; BP diastolic 72–110; PULSE 67–97; RESP 12–28; TEMP 36.3–37.3; O2SAT 75–100
[2022-03-30] MEDS: piperacillin-tazobactam 3.375 GM in sodium chloride 0.9% (plus) 50 ML IV ×2 (00:18→11:35)
[2022-03-30] MEDS: acetaminophen 500 mg Tablet PO (02:57)
[2022-03-30 04:52] LABS: Basophils # 0.1 10^3/uL (0.0-0.1); Eosinophils # 0.1 10^3/uL (0.0-0.8); Eosinophils % 1.5 %; Hematocrit 36.7 % (42.0-52.0); Lymphocytes # 2.6 10^3/uL (0.8-4.8); Lymphocytes % 29.2 %; Mean Corpuscular HGB Conc 32.7 g/dL (30.0-36.0); Mean Corpuscular Hemoglobin 29.5 pg (28.0-34.0); Mean Corpuscular Volume 90.2 fl (80-94); Mean Platelet Volume 8.4 fL (7.4-10.4); Monocytes # 0.7 10^3/uL (0.2-0.9); Monocytes % 7.8 %; Neutrophils # 5.32 10^3/uL (1.8-7.7); Neutrophils % 59.7 %; Nucleated Red Blood Cells % 0 %; Platelet Count 492 10^3/cmm (130-400); Red Blood Count 4.07 10^6/uL (4.1-5.3); Red Cell Distribution Width 12.3 % (12.1-15.1); White Blood Count 8.9 10^3/uL (4.0-10.0)
[2022-03-30 05:07] LABS: Anion Gap 12.9 (5-19); Blood Urea Nitrogen 15 mg/dL (8-23); C Reactive Protein 9.8 mg/L (0.0-4.9); Calcium 8.8 mg/dL (8.5-10.5); Carbon Dioxide 25 mmol/L (22-29); Chloride 106 mmol/L (98-107); Glomerular Filtration Rate 83.7 mL/min (90-130); Glucose 109 mg/dL (65-115); Magnesium 2.2 mg/dL (1.7-2.3); Osmolality Calculated 291 mOsm/kg (285-295); Potassium 3.9 mmol/L (3.5-5.1); Sodium 140 mmol/L (136-145)
[2022-03-30 05:11] LABS: Lactate (Lactic Acid level) 1.8 mmol/L (0.5-2.2)
--- NOTE | 2022-03-30 09:04 | P.CONIM_ITS ---
Providers/Reason For Consult Consulting Physician/Specialty*: Rhoda Uribe MD General Surgery Reason for Consult*: Abdominal abscess Attending Physician: Chris Yao MD Primary Care Provider: Karla Frazier MD History of Present Illness History of Present Illness Freddy Eagle is a 71 year old male who presents with an abscess following appendectomy. He is now postoperative day 15 from an uncomplicated laparoscopic appendectomy without gangrene or perforation. He was seen in surgical follow-up 6 days ago at which point his recovery was deemed satisfactory. He subsequently followed up with his PCP, who noted leukocytosis on blood work and sent him for imaging. He was found to have an abscess and presented for admission. He does report that he has had fevers intermittently at home up to 102. He has felt some pressure and discomfort with bowel movements ever since surgery. Review of Systems Const: Reports: fever(s) Card: Denies: chest pain Resp: Denies: dyspnea GI: Reports: abdominal pain Malick/Lymph: Denies: easy bleeding Medications/Allergies Home Medications Medication Instructions Recorded Confirmed Last Taken Type aspirin 81 mg tablet,delayed 81 mg PO DAILY #90 tabs 01/01/20 03/29/22 03/29/22 Rx release clopidogrel 75 mg tablet 75 mg PO DAILY #90 tabs 07/07/20 03/29/22 03/29/22 Rx lisinopril 40 mg tablet 40 mg PO DAILY #90 tabs 07/07/20 03/29/22 03/29/22 Rx metoprolol tartrate 25 mg tablet 25 mg PO BID #180 tabs 07/07/20 03/29/22 03/29/22 Rx cholecalciferol (vitamin D3) 25 25 mcg PO DAILY 03/15/22 03/29/22 03/29/22 History mcg (1,000 unit) capsule (Vitamin D3) vitamin E 268 mg (400 unit) capsule 268 mg PO DAILY 03/15/22 03/29/22 03/29/22 History amoxicillin 875 mg-potassium 1 tab PO BID #26 tabs 03/16/22 03/29/22 03/29/22 Rx clavulanate 125 mg tablet simvastatin 40 mg tablet 40 mg PO BEDTIME 03/29/22 03/29/22 1 Day Ago History ~03/28/22 Allergies Allergy/AdvReac Type Severity Reaction Status Date / Time No Known Allergies Allergy Verified 03/29/22 15:09 Current Medications Generic Name Dose Route Start Last Admin Trade Name Tree PRN Reason Stop Dose Admin Acetaminophen 500 mg 03/29/22 19:26 03/30/22 02:57 Acetaminophen 500 Mg Tablet PO 500 mg Q4H PRN Administration fever Hydralazine HCl 10 mg 03/29/22 20:17 03/29/22 20:48 Hydralazine 20 Mg/Ml Inj 1 Ml IVP 10 mg Q4H PRN Administration BP> 180/100 Dextrose/Sodium Chloride 1,000 mls @ 75 mls/hr 03/29/22 19:30 03/29/22 20:47 Dextrose 5%-Sod Chloride 0.9% IV 75 mls/hr .[id number] LAZ Administration Piperacillin Sod/Tazobactam 50 mls @ 100 mls/hr 03/29/22 20:00 03/30/22 03:13 Sod 3.375 gm/ Sodium Chloride IV Infused Q8H LAZ Infusion Vancomycin HCl 1,000 mg/ 250 mls @ 250 mls/hr 03/29/22 21:00 03/29/22 23:16 Sodium Chloride IV Infused Q12H LAZ Infusion PFSH Acute PFSH: Medical History Glucose intolerance Myocardial infarction Surgical History History of laparoscopic appendectomy S/P PTCA (percutaneous transluminal coronary angioplasty) Family History Other Cancer Social History Smoking and tobacco status: former smoker Household members: spouse Marital status: service: No Current occupational status: retired Current occupation: FIRE DEPARTMENT Vitals/I&O/Wt Last Vital Signs Temp 97.8 F 03/30/22 07:12 Pulse 67 03/30/22 07:12 Resp 18 03/30/22 07:12 BP 158/87 03/30/22 07:12 Pulse Ox 97 03/30/22 07:12 O2 Del Method 03/30/22 07:12 12/07/22 12/08/22 12/08/22 22:59 06:59 14:59 Intake Total 290 / 290 500 / 790 Output Total 300 / 300 674 / 974 Balance -10 / -10 -174 / -184 Weight last 48 hrs Weight 178 lb Physical Exam Const: COMMON NORMALS: no acute distress and alert Resp: COMMON NORMALS: normal respiratory effort and clear to auscultation bilaterally AUSCULTATION: clear to auscultation bilaterally Cardio: COMMON NORMALS: regular rate, regular rhythm, S1 normal heart sound present and S2 normal heart sound present RATE: regular rate RHYTHM: regular rhythm HEART SOUNDS: S1 normal heart sound present and S2 normal heart sound present GI: INSPECTION: No abdominal distension and Yes other (Incisions well-healed with no erythema) AUSCULTATION: Yes normoactive bowel sounds PALPATION: Yes Tenderness to palpation present (GI) Details: RLQ, No Guarding due to palpation present (GI) and No Rebound tenderness present Extremity: COMMON NORMALS: no clubbing, cyanosis or edema Neuro: SENSORIUM/ORIENTATION: Yes alert Psych: COMMON NORMALS: mental status grossly normal and normal affect Data 03/30/22 04:37 03/30/22 04:37 Micro: Microbiology 03/29/22 19:48 Blood Culture - Preliminary Blood SPECIMEN COLLECTED 03/29/22 19:40 Blood Culture - Preliminary Blood SPECIMEN COLLECTED CT Abd/Pel: My impression: Abscess appears to have a satisfactory percutaneous approach free of interposed viscera. Radiologist's impression: CT ABDOMEN AND PELVIS WITH CONTRAST IMPRESSION: ? 1.? RIGHT lower quadrant abscess measures 5.2 x 3.8 cm at the site of the recent appendectomy. Small amount of pericecal inflammatory changes and a few small lymph nodes. 2.? Tiny amount of free fluid in the pelvis. ? A&P Assessment and plan (1) Intra-abdominal abscess: Postoperative abscess status post appendectomy with no signs of peritonitis or sepsis. Abscess is large enough that it is unlikely to respond to medical only treatment. Recommend image guided percutaneous drainage if possible. I discussed with the patient that if percutaneous drainage is unsuccessful or unavailable, he may need surgical drainage. Will follow. Coding Level of Care Code Acute Exploration Geologist for alisa Rios Diagnoses Intra-abdominal abscess K65.1
[2022-03-30] MEDS: vancomycin 1,000 MG in sodium chloride 0.9% 250 ML 250 MG IV ×2 (09:25→20:26)
--- NOTE | 2022-03-30 10:57 | PC.CHAP ---
Pastoral Care Encounter/Spiritual Assessment Type of Contact [] Declined senior software development engineer visit [] Patient/Family/Request visit [] Outpatient visit [] Follow-up visit [] Physician referral [] Code/Alert [x] Routine visit [] Staff referral [] Actively dying [] Patient sleeping [] Family support [] [] Out of room [] Palliative care [] [x] Receiving care in room [] Pre-surgical visit [] Trauma [] Long length of stay [] ICU visit [] Other: Relational/Emotional Strength [] Patient feels connected with others/family/visitors/staff [x] Distress [] Loneliness/isolation [] Abandonment Spirituality of Patient [x] Person of Tran [] Attends Baptist of their Tran [x] Believes in Prayer [] Reads Bible or Catholic materials [] There are Spiritual issues to be addressed Associate Director Finance Interventions [x] Prayer [x] Active listening [x] Non-anxious presence [x] Spiritual/emotional support [] Crisis/trauma care [x] Spiritual counseling [] Bereavement support [] Provided bereavement packet [] Provided Bible/devotional materials [] Provided toy/stuffed animal, coloring book to patient or family member [] Provided Communion [] Anointing/[place] [] Salvation [x] Completed spiritual assessment [] Other: Impact on Illness or Injury [] Angry [] Fearful [x] Anxious [] Often cries [] Exhaustion [] Unable to work [] Unable to attend sabianism [] Unable to walk/stand [] Unable to read [] Unable to drive [] Unable to eat/drink [] Unable to sleep [] Unable to be with family [] Patient intubated [] Other: Summary surgery feels good has a good attitude +1 well be going home Time spent with patient 10 mins
[2022-03-30 11:28] LABS: INR 1.05 (0.8-1.2)
--- NOTE | 2022-03-30 13:00 | CT_ITS ---
WS: [id number] CT-GUIDED APPENDICEAL ABSCESS DRAIN PLACEMENT CLINICAL INFORMATION: S/P APPENDIX SURGERY ABSCESS DRAIN PLACEMENT COMPARISON: CT abdomen pelvis March 29, 2022 DLP: [id number] TECHNIQUE: The procedure including risk, benefits, and complications were discussed with the patient who agreed to proceed. Using sterile technique, the patient was prepped and draped in the usual steri le fashion. Patient was positioned supine and CT images were obtained through the lower abdomen and p karley. Conscious sedation was utilized. Using CT fluoroscopic guidance the periappendiceal abscess wa s localized. 17-gauge localizing needle was advanced into the abscess collection. Several cc of visco us abscess fluid was aspirated and sent for cultures. Localizing needle was removed over wire and uti lizing Seldinger technique 8 [place]au[place] pigtail catheter was advanced into the abscess collection. Drain was aspirated with very little return of fluid. Drain was removed over a wire and additional 8 [place] pigtail catheter was advanced into the abscess cavity using Seldinger technique. Fluoroscopic images confirmed good positioning within the central abscess cavity. Catheter was connected to [employer] tang bag. No immediate applications. CT/CT drain appendix absces [id number] IMPRESSION: 1. CT-guided RIGHT lower quadrant 8 Palauan appendiceal abscess pigtail cathet er drain placement. Approximately 3 cc of sticky viscous abscess fluid was aspi rated and sent for culture. 2. Recommend catheter flushing twice a day with 10 cc normal saline 3. Abscess today prior to procedure measures smaller 3.8 x 3.2 cm compared to 5.2 x 3.8 cm previous. This is partially decompressed compared to prior examina tion. Notified Rhoda Uribe MD at 03/30/2022 4:54 PM. Also discussed with Dr. Yao.
[2022-03-30] MEDS: sodium chloride 0.9% 1,000 ML 30 ML IV (13:15)
[2022-03-30] MEDS: fentaNYL 50 mcg/mL INJ 2mL IVP ×2 (13:20→13:40)
[2022-03-30] MEDS: midazolam 1 mg/mL INJ 2 mL 2 MG IVP ×2 (13:21→13:41)
--- NOTE | 2022-03-30 14:05 | PC.NURSE ---
CO2 monitored for entire procedure, remained WNL
[2022-03-30] MEDS: fentaNYL 50 mcg/mL INJ 2mL 25 MCG IVP ×2 (14:12→14:35)
[2022-03-30] MEDS: midazolam 1 mg/mL INJ 2 mL IVP ×2 (14:13→14:36)
[2022-03-30] MEDS: HYDROcodone-acetaminophen 5-325 mg Tablet 1 TAB PO ×2 (16:33→20:26)
--- NOTE | 2022-03-30 17:07 | P.PN_ITS ---
Subjective Subjective: Patient denies fevers, chills, nausea or emesis. Endorses abdominal discomfort and some trouble urinating. Medications: Reviewed: Yes Vitals/I&O/Wt Last Vital Signs Temp 97.6 F 03/30/22 15:48 Pulse 84 03/30/22 15:48 Resp 18 03/30/22 15:48 BP 167/94 03/30/22 15:48 Pulse Ox 94 03/30/22 15:48 O2 Del Method 03/30/22 15:15 O2 Flow Rate 6 03/30/22 14:55 03/30/22 03/30/22 03/30/22 06:59 14:59 22:59 Intake Total 500 / 790 100 / 100 Output Total 674 / 974 Balance -174 / -184 100 / 100 Weight last 48 hrs Weight 80.739 kg Physical Exam Narrative: General: Patient is awake and alert. Head: Normocephalic. Atraumatic. EOM intact. Neck: No JVD. Cardiovascular: RRR. No gallops. No murmurs. No peripheral edema. Lungs: Clear to auscultation, no use of accessory muscles, no crackles or wheezes. Skin: No jaundice. No rashes. Abdomen: Normal bowel sounds, abdomen slightly tender to palpation. Genito Urinary: Genital exam not performed since complaints not related. Rectal: Rectal exam not performed since no symptoms indicated blood loss. Extremities: No cyanosis or clubbing. Musculoskeletal: 5/5 strength, normal range of motion, no swollen or erythematous joints. Neurological: Moves all 4 extremities. No myoclonus. Data 03/30/22 04:37 03/30/22 04:37 Micro: Microbiology 03/29/22 19:48 Blood Culture - Preliminary Blood SPECIMEN COLLECTED 03/29/22 19:40 Blood Culture - Preliminary Blood SPECIMEN COLLECTED A&P Assessment and plan (1) Intra-abdominal abscess: Patient discussed and evaluated by general surgery Patient discussed and evaluated by radiology Status post drain placement by radiology however discharge was noted to be very thick High risk for needing a surgical washout We will continue monitoring the drain output Flush drain daily Follow-up cultures Continue Zosyn Continue vancomycin Multimodal pain control (2) History of laparoscopic appendectomy: As above (3) Coronary artery disease: Continue statin Holding aspirin and Plavix in case he needs a washout (4) Hypertension: Continue metoprolol Continue BLANKA inhibitor Plan DVT prophylaxis: SCD CODE STATUS full code Attestations Medical Necessity Statement*: Patient requires ongoing hospitalization for IV antibiotics, serial exams, and supportive care with expected hospitalization to cross 2 midnights. Coding Level of Care Code Acute Learning Support Resource Room Teacher for [employer] Fwd Diagnoses Intra-abdominal abscess K65.1 History of laparoscopic appendectomy Z90.49 Coronary artery disease I25.10 Hypertension I10
[2022-03-30] MEDS: HYDROmorphone 1 mg/mL INJ 1 mL 0.5 MG IVP (17:31)
[2022-03-30] MEDS: atorvastatin 40 mg Tablet 20 MG PO (20:26)
[2022-03-31] MEDS: piperacillin-tazobactam 3.375 GM in sodium chloride 0.9% (plus) 50 ML IV ×3 (02:44→17:14)
[2022-03-31 04:00] VITALS: BP 154/85; PULSE 92; RESP 15; TEMP 37.2; O2SAT 94
[2022-03-31] MEDS: HYDROcodone-acetaminophen 5-325 mg Tablet 1 TAB PO ×5 (05:08→23:26)
[2022-03-31 07:59] VITALS: BP 155/77; PULSE 88; RESP 18; TEMP 36.9; O2SAT 97
[2022-03-31] MEDS: lisinopril 20 mg Tablet 40 MG PO (08:14)
[2022-03-31 08:35] LABS: Vancomycin Trough 7.6 ug/mL (10-15)
--- NOTE | 2022-03-31 10:33 | PC.NURSE ---
Vanc not given, waiting on pharmacy to redose per the lab.
[2022-03-31 12:00] VITALS: BP 155/79; PULSE 86; RESP 16; TEMP 37.1; O2SAT 93
--- NOTE | 2022-03-31 12:15 | P.PN_ITS ---
Subjective Subjective: Patient underwent CT-guided drainage of abscess yesterday with report from radiologist of a smaller abscess cavity prior to intervention with small volume of very thick secretions yielded from the drain. Plan is to flush the drain twice a day and he recommends leaving the drain until Sunday. Patient reports that the discomfort is improved. He has been afebrile. Vitals/I&O/Wt Last Vital Signs Temp 98.4 F 03/31/22 07:59 Pulse 88 03/31/22 07:59 Resp 18 03/31/22 07:59 BP 155/77 03/31/22 07:59 Pulse Ox 97 03/31/22 07:59 O2 Del Method 03/31/22 04:00 O2 Flow Rate 6 03/30/22 14:55 03/30/22 03/31/22 03/31/22 22:59 06:59 14:59 Intake Total 520 / 1770 290 / 2060 550 / 550 Output Total 300 / 300 450 / 750 Balance 220 / 1470 -160 / 1310 550 / 550 Weight last 48 hrs Weight 178 lb Physical Exam Const: COMMON NORMALS: no acute distress and alert GI: COMMON NORMALS: Soft to palpation INSPECTION: No abdominal distension PALPATION: Yes Soft to palpation, Yes Tenderness to palpation present (GI) (Focal tenderness just superior to drain site. No generalized tenderness.), No Guarding due to palpation present (GI), No Rigid due to palpation and No Rebound tenderness present Neuro: SENSORIUM/ORIENTATION: Yes alert Data 03/30/22 04:37 03/30/22 04:37 Micro: Microbiology 03/30/22 14:45 Gram Stain - Final Ankle - Abdominal 03/29/22 19:48 Blood Culture - Preliminary Blood NEGATIVE TO DATE 03/29/22 19:40 Blood Culture - Preliminary Blood NEGATIVE TO DATE Moderate gram-negative rods and rare gram-positive cocci on gram stain A&P Assessment and plan (1) Intra-abdominal abscess: Abscess following appendectomy, now status post percutaneous drainage. Patient with no leukocytosis or fever. No peritonitis on exam. No indication for surgical reexploration at present. Recommend continuing antibiotics and awaiting cultures. He developed an abscess despite outpatient antibiotics, so would recommend inpatient care until we have some clarity regarding possible drug-resistant organisms. Anticipate repeat imaging prior to pulling the drain. Attestations Medical Necessity Statement*: Continue inpatient care for IV antibiotics and drain care and monitoring. Coding Level of Care Code Acute Dimension Warehouse Supervisor for Chg Fwd Diagnoses Intra-abdominal abscess K65.1
[2022-03-31] MEDS: vancomycin 1,250 MG/250 ML PIGGYBACK 250 MG IV (14:06)
[2022-03-31 15:59] VITALS: BP 165/85; PULSE 96; RESP 17; TEMP 36.6; O2SAT 94
--- NOTE | 2022-03-31 18:02 | P.PN_ITS ---
Subjective Subjective: Patient reports ongoing abdominal pain. He says is severe at times. Reports the pain medicine does help. Denies any fevers or chills overnight. Reports that he is hungry. Denies other new complaints. Medications: Reviewed: Yes Vitals/I&O/Wt Last Vital Signs Temp 97.9 F 03/31/22 15:59 Pulse 96 03/31/22 15:59 Resp 17 03/31/22 15:59 BP 165/85 03/31/22 15:59 Pulse Ox 94 03/31/22 15:59 O2 Del Method 03/31/22 04:00 O2 Flow Rate 6 03/30/22 14:55 03/31/22 03/31/22 03/31/22 06:59 14:59 22:59 Intake Total 290 / 2060 960 / 960 250 / 1210 Output Total 450 / 750 Balance -160 / 1310 960 / 960 250 / 1210 Physical Exam Narrative: General: Patient is awake and alert. Head: Normocephalic. Atraumatic. EOM intact. Neck: No JVD. Cardiovascular: RRR. No gallops. No murmurs. No peripheral edema. Lungs: Clear to auscultation, no use of accessory muscles, no crackles or wheezes. Skin: No jaundice. No rashes. Abdomen: Normal bowel sounds, abdomen slightly tender to palpation. He does have a accordion like drain with minimal drainage coming from it. Genito Urinary: Genital exam not performed since complaints not related. Rectal: Rectal exam not performed since no symptoms indicated blood loss. Extremities: No cyanosis or clubbing. Musculoskeletal: 5/5 strength, normal range of motion, no swollen or erythematous joints. Neurological: Moves all 4 extremities. No myoclonus. Data 03/30/22 04:37 03/30/22 04:37 Micro: Microbiology 03/30/22 14:45 Gram Stain - Final Ankle - Abdominal Body Fluid Culture - Preliminary 03/29/22 19:48 Blood Culture - Preliminary Blood NEGATIVE TO DATE 03/29/22 19:40 Blood Culture - Preliminary Blood NEGATIVE TO DATE A&P Assessment and plan (1) Intra-abdominal abscess: Status post drain placement on 03/30 with minimal output Continue flushing drain twice daily He may need surgical washout, this to be determined Follow-up drain cultures Continue Zosyn Continue vancomycin We will consider repeat imaging pending clinical course Multimodal pain control (2) History of laparoscopic appendectomy: As above (3) Coronary artery disease: Continue statin Holding aspirin and Plavix in case he needs a washout (4) Hypertension: Continue metoprolol Continue BLANKA inhibitor Plan DVT prophylaxis: SCD CODE STATUS full code Attestations Medical Necessity Statement*: Patient requires ongoing hospitalization for IV antibiotics, serial exams, drain care, culture surveillance and supportive care. Coding Level of Care Code Acute Tennis Coach for [facility] Diagnoses Intra-abdominal abscess K65.1 History of laparoscopic appendectomy Z90.49 Coronary artery disease I25.10 Hypertension I10
[2022-03-31] MEDS: atorvastatin 40 mg Tablet 20 MG PO (19:34)
[2022-03-31 20:00] VITALS: BP 163/83; PULSE 96; RESP 17; TEMP 37.6; O2SAT 94
[2022-03-31 22:31] VITALS: PULSE 99; RESP 16; O2SAT 94
[2022-04-01] VITALS (8 sets, daily range): BP systolic 122–166; BP diastolic 73–92; PULSE 71–112; RESP 16–20; TEMP 36.6–37.7; O2SAT 92–99
[2022-04-01] MEDS: vancomycin 1,250 MG/250 ML PIGGYBACK 250 MG IV ×2 (01:04→14:16)
[2022-04-01] MEDS: piperacillin-tazobactam 3.375 GM in sodium chloride 0.9% (plus) 50 ML IV ×3 (02:48→18:03)
[2022-04-01] MEDS: HYDROcodone-acetaminophen 5-325 mg Tablet 1 TAB PO ×4 (03:15→23:10)
[2022-04-01 04:00] LABS: Basophils # 0.1 10^3/uL (0.0-0.1); Basophils % 0.4 %; Eosinophils # 0.1 10^3/uL (0.0-0.8); Eosinophils % 0.3 %; Hematocrit 35.3 % (42.0-52.0); Hemoglobin 11.4 g/dL (11.7-16.6); Lymphocytes # 2.7 10^3/uL (0.8-4.8); Lymphocytes % 14.6 %; Mean Corpuscular HGB Conc 32.3 g/dL (30.0-36.0); Mean Corpuscular Hemoglobin 29.4 pg (28.0-34.0); Mean Platelet Volume 8.6 fL (7.4-10.4); Monocytes # 1.1 10^3/uL (0.2-0.9); Monocytes % 5.8 %; Neutrophils # 14.37 10^3/uL (1.8-7.7); Neutrophils % 78.3 %; Nucleated Red Blood Cells % 0 %; Platelet Count 445 10^3/cmm (130-400); Red Blood Count 3.88 10^6/uL (4.1-5.3); Red Cell Distribution Width 12.4 % (12.1-15.1); White Blood Count 18.4 10^3/uL (4.0-10.0)
[2022-04-01 04:20] LABS: Albumin Level 2.9 g/dL (3.5-5.2); Anion Gap 9.6 (5-19); Blood Urea Nitrogen 11 mg/dL (8-23); Calcium 8.4 mg/dL (8.5-10.5); Carbon Dioxide 24 mmol/L (22-29); Chloride 100 mmol/L (98-107); Glomerular Filtration Rate 111.8 mL/min (90-130); Glucose 111 mg/dL (65-115); Magnesium 1.9 mg/dL (1.7-2.3); Phosphorus 2.1 mg/dL (2.5-4.5); Potassium 3.6 mmol/L (3.5-5.1); Sodium 130 mmol/L (136-145)
[2022-04-01] MEDS: lisinopril 20 mg Tablet 40 MG PO (08:28)
--- NOTE | 2022-04-01 10:24 | P.PN_ITS ---
Subjective Subjective: Patient reports headache which he attributes to his blood pressure. Reports pain medications are keeping his abdminal pain controlled. Denies fevers, chills, shortness of breath or chest pain. Medications: Reviewed: Yes Vitals/I&O/Wt Last Vital Signs Temp 98.8 F 04/01/22 07:41 Pulse 89 04/01/22 07:41 Resp 16 04/01/22 07:41 BP 166/92 04/01/22 07:41 Pulse Ox 94 04/01/22 07:41 O2 Del Method 04/01/22 07:41 O2 Flow Rate 6 04/01/22 08:00 03/31/22 04/01/22 04/01/22 22:59 06:59 14:59 Intake Total 300 / 1260 300 / 1560 Output Total 700 / 700 Balance 300 / 1260 -400 / 860 Physical Exam Narrative: General: Patient is awake. Appears ill. Head: Normocephalic. Atraumatic. EOM intact. Neck: No JVD. Cardiovascular: RRR. No gallops. No murmurs. No peripheral edema. Lungs: Clear to auscultation, no use of accessory muscles, no crackles or wheezes. Skin: No jaundice. No rashes. Abdomen: Normal bowel sounds, abdomen slightly tender to palpation. Accordion like drain with dark bloody output. Genito Urinary: Genital exam not performed since complaints not related. Rectal: Rectal exam not performed since no symptoms indicated blood loss. Extremities: No cyanosis or clubbing. Musculoskeletal: 5/5 strength, normal range of motion, no swollen or erythematous joints. Neurological: Moves all 4 extremities. No myoclonus. Data 04/01/22 03:13 04/01/22 03:13 Micro: Microbiology 03/30/22 14:45 Gram Stain - Final Ankle - Abdominal Body Fluid Culture - Preliminary A&P Assessment and plan (1) Intra-abdominal abscess: Marked leukocytosis Status post drain placement on 03/30 Continue flushing drain twice daily Follow-up drain cultures Continue Zosyn Continue vancomycin Multimodal pain control (2) History of laparoscopic appendectomy: As above (3) Coronary artery disease: Continue statin Holding aspirin and Plavix in case he needs a washout (4) Hypertension: Continue metoprolol Continue BLANKA inhibitor Plan DVT prophylaxis: SCD CODE STATUS: full code Attestations Medical Necessity Statement*: Patient requires ongoing hospitalization for IV antibiotics, serial exams, drain care, culture surveillance and supportive care. Coding Level of Care Code Acute Detective Precinct for Chg Fwd Diagnoses Intra-abdominal abscess K65.1 History of laparoscopic appendectomy Z90.49 Coronary artery disease I25.10 Hypertension I10
--- NOTE | 2022-04-01 11:21 | P.PN_ITS ---
Subjective Subjective: Freddy continues to have some localized abdominal pain but it has not seemed to worsen. He did have some nausea today but no vomiting. Vitals/I&O/Wt Last Vital Signs Temp 98.8 F 04/01/22 07:41 Pulse 89 04/01/22 07:41 Resp 16 04/01/22 07:41 BP 166/92 04/01/22 07:41 Pulse Ox 94 04/01/22 07:41 O2 Del Method 04/01/22 07:41 O2 Flow Rate 6 04/01/22 08:00 T-max 99.6 03/31/22 04/01/22 04/01/22 22:59 06:59 14:59 Intake Total 300 / 1260 300 / 1560 240 / 240 Output Total 700 / 700 Balance 300 / 1260 -400 / 860 240 / 240 Physical Exam Const: COMMON NORMALS: no acute distress and alert GENERAL APPEARANCE: not ill appearing Resp: COMMON NORMALS: normal respiratory effort GI: COMMON NORMALS: Soft to palpation INSPECTION: No abdominal distension and Yes other (Drain with scant sanguinous but watery output (no clots)) PALPATION: Yes Soft to palpation and Yes Tenderness to palpation present (GI) Details: RLQ (less tender than yesterday) Neuro: SENSORIUM/ORIENTATION: Yes alert Psych: COMMON NORMALS: mental status grossly normal and normal affect Data 04/01/22 03:13 04/01/22 03:13 Micro: Microbiology 03/30/22 14:45 Gram Stain - Final Ankle - Abdominal Body Fluid Culture - Preliminary A&P Assessment and plan (1) Intra-abdominal abscess: Abscess with presented late following appendectomy. He has a percutaneous drain in place with minimal output. Leukocytosis has recurred with no fever or tachycardia to suggest significant inflammatory response. Physical exam is actually slightly improved. Cultures are pending. If these return with no resistant organisms, recommend reimaging to evaluate for residual fluid and the position of the drain. He may need surgical drainage if he fails medical and IR treatment. Dr. Floyd to assume surgical follow-up tomorrow; patient aware. Attestations Medical Necessity Statement*: Ongoing hospitalization required for IV antibiotics, drain care, and monitoring treatment response for abdominal abscess. Coding Level of Care Code Acute Fitter Mechanic for Chg Fwd Exam Expanded Problem Focused Diagnoses Intra-abdominal abscess K65.1
[2022-04-01] MEDS: atorvastatin 40 mg Tablet 20 MG PO (20:15)
[2022-04-02] VITALS (7 sets, daily range): BP systolic 115–177; BP diastolic 72–97; PULSE 82–108; RESP 16–20; TEMP 36.5–38; O2SAT 93–97
[2022-04-02 01:42] LABS: Basophils # 0.1 10^3/uL (0.0-0.1); Basophils % 0.4 %; Eosinophils # 0.1 10^3/uL (0.0-0.8); Eosinophils % 0.3 %; Hematocrit 33.7 % (42.0-52.0); Hemoglobin 11.1 g/dL (11.7-16.6); Lymphocytes # 2.2 10^3/uL (0.8-4.8); Lymphocytes % 12.2 %; Mean Corpuscular HGB Conc 32.9 g/dL (30.0-36.0); Mean Corpuscular Hemoglobin 29.6 pg (28.0-34.0); Mean Corpuscular Volume 89.9 fl (80-94); Mean Platelet Volume 8.4 fL (7.4-10.4); Monocytes # 1.2 10^3/uL (0.2-0.9); Monocytes % 6.5 %; Neutrophils # 14.62 10^3/uL (1.8-7.7); Neutrophils % 79.9 %; Nucleated Red Blood Cells % 0 %; Platelet Count 400 10^3/cmm (130-400); Red Blood Count 3.75 10^6/uL (4.1-5.3); Red Cell Distribution Width 12.3 % (12.1-15.1); White Blood Count 18.3 10^3/uL (4.0-10.0)
[2022-04-02 02:05] LABS: Albumin Level 2.9 g/dL (3.5-5.2); Anion Gap 11.4 (5-19); Blood Urea Nitrogen 8 mg/dL (8-23); Calcium 8.4 mg/dL (8.5-10.5); Carbon Dioxide 24 mmol/L (22-29); Chloride 100 mmol/L (98-107); Glomerular Filtration Rate 111.8 mL/min (90-130); Glucose 112 mg/dL (65-115); Magnesium 2.1 mg/dL (1.7-2.3); Phosphorus 2.6 mg/dL (2.5-4.5); Potassium 3.4 mmol/L (3.5-5.1); Sodium 132 mmol/L (136-145)
[2022-04-02 02:20] LABS: Vancomycin Trough 7.1 ug/mL (10-15)
[2022-04-02] MEDS: vancomycin 1,250 MG/250 ML PIGGYBACK 250 MG IV (02:31)
[2022-04-02] MEDS: HYDROcodone-acetaminophen 5-325 mg Tablet 1 TAB PO ×3 (03:00→18:14)
[2022-04-02] MEDS: piperacillin-tazobactam 3.375 GM in sodium chloride 0.9% (plus) 50 ML IV ×3 (04:03→18:16)
[2022-04-02] MEDS: lisinopril 20 mg Tablet 40 MG PO (07:36)
--- NOTE | 2022-04-02 08:46 | CTR_ITS ---
PROCEDURE INFORMATION: Exam: CT Chest With Contrast; Diagnostic Exam date and time: 04/02/2022 10:28 AM Age: 71 years old Clinical indication: Abdominal pain; Other: Abscess, drain placed, leukocytosis, pain; Prior surgery; Surgery date: 3-7 days post-operative; Surgery type: Appy TECHNIQUE: Imaging protocol: Diagnostic computed tomography of the chest with contrast. Radiation optimization: All CT scans at this facility use at least one of these dose optimization techniques: automated exposure control; mA and/or kV adjustment per patient size (includes targeted exams where dose is matched to clinical indication); or iterative reconstruction. Contrast material: OMNI 350; Contrast volume: 100 ml; Contrast route: INTRAVENOUS (IV); COMPARISON: CT drain appendix absces [id number] 03/30/2022 1:24 PM RADIATION DOSE METRICS: Total DLP (mGy-cm): 1220.13 FINDINGS: Lungs: Minimal dependent right basilar atelectasis. Pleural spaces: Unremarkable. No pneumothorax. No pleural effusion. Heart: The heart is within normal limits for size. There is no evidence of pericardial abnormality. No coronary artery calcifications noted. Coronary arteries: Mild coronary artery calcifications noted. Lymph nodes: Unremarkable. No enlarged lymph nodes. Vasculature: Unremarkable. No aortic aneurysm. Bones/joints: Unremarkable. No acute fracture. Soft tissues: Unremarkable. PROCEDURE INFORMATION: Exam: CT Abdomen And Pelvis With Contrast Exam date and time: 04/02/2022 10:28 AM Age: 71 years old Clinical indication: Abdominal pain; Other: Abscess, drain placed, leukocytosis, pain; Prior surgery; Surgery date: 3-7 days post-operative; Surgery type: Appy TECHNIQUE: Imaging protocol: Computed tomography of the abdomen and pelvis with contrast. Radiation optimization: All CT scans at this facility use at least one of these dose optimization techniques: automated exposure control; mA and/or kV adjustment per patient size (includes targeted exams where dose is matched to clinical indication); or iterative reconstruction. Contrast material: OMNI 350; Contrast volume: 100 ml; Contrast route: INTRAVENOUS (IV); COMPARISON: 1. CT abdomen pelvis w con* [id number] 03/29/2022 1:[address] drain appendix absces [id number] 03/30/2022 1:[address] abdomen pelvis w con* [id number] 03/15/2022 2:16 PM RADIATION DOSE METRICS: Total DLP (mGy-cm): 1220.13 FINDINGS: Liver: The liver is normal in size and contour. Gallbladder and bile ducts: The gallbladder is distended with normal wall thickness and does not demonstrate calcified gallstones. No intra- or extra-hepatic biliary ductal dilatation. Pancreas: The pancreas appears normal. Spleen: The spleen appears normal. Adrenal glands: The adrenals appear normal. Kidneys and ureters: Interval development of right retroperitoneal fat stranding and fascial thickening. Endothelial hyperemia of the distal right ureter likely related to adjacent inflammatory changes in the right lower quadrant. No significant hydronephrosis. Simple appearing, fluid density cysts noted in the kidneys bilaterally. The kidneys enhance symmetrically and empty into non-dilated ureters. Stomach and bowel: The stomach appears unremarkable. Duodenal diverticulum noted. The small bowel loops are not abnormally dilated. The large bowel loops are not abnormally dilated. Redundant sigmoid colon noted. Colonic diverticulosis without signs of acute diverticulitis. Appendix: Inflammatory changes in the right lower quadrant persist. Previously placed right lower quadrant pericecal abscess drain has dislodged. The distal tip is now located within the superficial soft tissues of the right anterior abdominopelvic wall. Minimal subcutaneous emphysema in the right anterior abdominopelvic wall related to dislodged abscess drain. The abscess measures 3.7 x 2.8 x 3.0 cm which is slightly decreased compared to prior exam. Intraperitoneal space: No ascites or significant fluid collection. Vasculature: The aorta is nonaneurysmal. The IVC appears normal. Lymph nodes: There are no enlarged lymph nodes. Urinary bladder: The bladder is distended and demonstrates no focal contour abnormality. Reproductive: Unremarkable as visualized. Bones/joints: Unremarkable. Soft tissues: Bilateral fat containing inguinal hernias more prominent on the left versus the right. CT/CT chest abd pel w con* IMPRESSION: No acute thoracic abnormality identified. IMPRESSION: 1. Interval dislodgement of previously placed right lower quadrant pericecal abscess drain. The drain tip is now within the abdominopelvic wall. 2. The previously noted abscess has slightly decreased in size. 3. Persistent inflammatory changes in the right lower quadrant with subsequent development of inflammatory changes in the right perinephric region. 4. Endothelial hyperemia in the distal right ureter but no definitive signs of pyelonephritis. 5. Colonic diverticulosis without signs of acute diverticulitis. COMMENTS: Consistent with the [employer]'s Incidental Findings Committee white paper (J Am Aleja Radiol 2018): Any incidental renal lesion less than 1 cm or classified as too small to characterize, or any incidental cystic renal lesion characterized as simple-appearing, is likely benign. No follow-up imaging is recommended for these lesions per consensus recommendations based on imaging criteria.
--- NOTE | 2022-04-02 09:18 | PM.PN ---
Subjective Subjective: Patient reports persistent abdominal pain. Denies nausea, emesis, shortness of breath, or chest pain. Denies constipation. Medications: Reviewed: Yes Vitals/I&O/Wt Last Vital Signs Temp 97.7 F 04/02/22 08:00 Pulse 90 04/02/22 08:00 Resp 16 04/02/22 08:00 BP 115/72 04/02/22 08:00 Pulse Ox 97 04/02/22 08:00 O2 Del Method 04/02/22 08:00 O2 Flow Rate 6 04/01/22 08:00 04/01/22 04/02/22 04/02/22 22:59 06:59 14:59 Intake Total 1020 / 1655 250 / 1905 50 / 50 Output Total 200 / 200 400 / 600 Balance 820 / 1455 -150 / 1305 50 / 50 Physical Exam Narrative: General: Patient is awake. Alert. Head: Normocephalic. Atraumatic. EOMI Neck: No JVD. Cardiovascular: RRR. No gallops. No murmurs. No peripheral edema. Lungs: Clear to auscultation, no use of accessory muscles, no crackles or wheezes. Skin: No jaundice. No rashes. Abdomen: Normal bowel sounds, abdomen tender to palpation. Accordion like drain with scant dark bloody output. Genito Urinary: Genital exam not performed since complaints not related. Rectal: Rectal exam not performed since no symptoms indicated blood loss. Extremities: No cyanosis or clubbing. Musculoskeletal: 5/5 strength, normal range of motion, no swollen or erythematous joints. Neurological: Moves all 4 extremities. No myoclonus. Data 04/02/22 01:20 04/02/22 01:20 Micro: Microbiology 03/30/22 14:45 Gram Stain - Final Ankle - Abdominal Body Fluid Culture - Preliminary Gram Negative Rods Gram Negative Rods#2 A&P Assessment and plan (1) Intra-abdominal abscess: Marked and persistent leukocytosis Status post drain placement on 03/30 Continue flushing drain twice daily Fluid culture with GNR, follow up result Continue Zosyn Continue vancomycin Multimodal pain control General surgery follow up Repeat CT abdomen/pelvis (2) History of laparoscopic appendectomy: As above (3) Coronary artery disease: Continue statin Holding aspirin and Plavix in case he needs a washout (4) Hypertension: Continue metoprolol Continue BLANKA inhibitor Plan DVT prophylaxis: SCD CODE STATUS: full code Attestations Medical Necessity Statement*: Patient requires ongoing hospitalization for IV antibiotics, serial exams, drain care, culture surveillance and supportive care. Coding Level of Care Code Acute Receiving Supervisor for [facility] Diagnoses Intra-abdominal abscess K65.1 History of laparoscopic appendectomy Z90.49 Coronary artery disease I25.10 Hypertension I10
[2022-04-02] MEDS: vancomycin 1,000 MG in sodium chloride 0.9% 250 ML 250 MG IV ×2 (09:46→18:14)
[2022-04-02] MEDS: acetaminophen 500 mg Tablet PO (16:54)
--- NOTE | 2022-04-02 16:57 | ECG_ITS ---
[facility] Test Date: 2022-04-02 Pat Name: Freddy Eagle Department: Room: 276 Gender: Male Supervisor [employer] Education: : 1950 Requested By: Chris Orr Order Number: [id number] MD: Derik Taylor M.D. Measurements Intervals [place] Rate: 102 P: 30 [place]: 192 QRS: -26 QRSD: 93 T: 79 QT: 339 QTc: 443 Interpretive Statements SINUS TACHYCARDIA BORDERLINE LEFT AXIS DEVIATION [QRS AXIS < -20] MINIMAL VOLTAGE CRITERIA FOR LVH, CONSIDER NORMAL VARIANT [MEETS CRITERIA IN ONE OF: R(aVL), S(V1), R(V5), R(V5/V6)+S(V1)] NONSPECIFIC ST & T-WAVE ABNORMALITY ABNORMAL RHYTHM ECG Compared to ECG 03/15/2022 14:32:27 T-wave abnormality now present Sinus rhythm no longer present Electronically Signed On 04-03-2022 14:57:08 BALLOON DESIGN PRINTER by Derik Taylor M.D. [email or web address]([id number]
[2022-04-02] MEDS: hyDRALAzine 20 mg/mL INJ 1 mL 10 MG IVP (17:06)
[2022-04-02] MEDS: metoprolol tartrate 25 mg Tablet PO (18:14)
[2022-04-02 18:17] LABS: Troponin T (5th) Once 11 ng/L (0-15)
[2022-04-02] MEDS: atorvastatin 40 mg Tablet 20 MG PO (20:34)
[2022-04-03] VITALS (7 sets, daily range): BP systolic 168–180; BP diastolic 79–93; PULSE 80–90; RESP 16–18; TEMP 36.9–37.9; O2SAT 94–96
[2022-04-03] MEDS: HYDROcodone-acetaminophen 5-325 mg Tablet 1 TAB PO (00:06)
[2022-04-03] MEDS: vancomycin 1,000 MG in sodium chloride 0.9% 250 ML 250 MG IV ×3 (02:32→17:05)
[2022-04-03] MEDS: piperacillin-tazobactam 3.375 GM in sodium chloride 0.9% (plus) 50 ML IV (02:42)
--- NOTE | 2022-04-03 07:48 | PC.NURSE ---
drain to right lower quadrant dry, clean and intact. scant drainage noted.
[2022-04-03] MEDS: metoprolol tartrate 25 mg Tablet PO ×2 (08:23→17:04)
[2022-04-03] MEDS: sennosides-docusate Tablet 1 TAB PO (08:23)
[2022-04-03] MEDS: lisinopril 20 mg Tablet 40 MG PO (08:23)
[2022-04-03 09:37] LABS: Basophils # 0.1 10^3/uL (0.0-0.1); Basophils % 0.4 %; Eosinophils # 0.1 10^3/uL (0.0-0.8); Eosinophils % 0.5 %; Hematocrit 32.9 % (42.0-52.0); Hemoglobin 10.8 g/dL (11.7-16.6); Lymphocytes # 1.6 10^3/uL (0.8-4.8); Lymphocytes % 11.8 %; Mean Corpuscular HGB Conc 32.8 g/dL (30.0-36.0); Mean Corpuscular Hemoglobin 29.3 pg (28.0-34.0); Mean Corpuscular Volume 89.2 fl (80-94); Mean Platelet Volume 8.7 fL (7.4-10.4); Monocytes % 7.1 %; Neutrophils # 10.95 10^3/uL (1.8-7.7); Neutrophils % 79.6 %; Nucleated Red Blood Cells % 0 %; Platelet Count 405 10^3/cmm (130-400); Red Blood Count 3.69 10^6/uL (4.1-5.3); Red Cell Distribution Width 12.5 % (12.1-15.1); White Blood Count 13.8 10^3/uL (4.0-10.0)
[2022-04-03 09:58] LABS: Anion Gap 11.4 (5-19); Blood Urea Nitrogen 8 mg/dL (8-23); Calcium 8.7 mg/dL (8.5-10.5); Carbon Dioxide 25 mmol/L (22-29); Chloride 102 mmol/L (98-107); Glomerular Filtration Rate 133.6 mL/min (90-130); Glucose 109 mg/dL (65-115); Magnesium 2.1 mg/dL (1.7-2.3); Phosphorus 2.3 mg/dL (2.5-4.5); Potassium 3.4 mmol/L (3.5-5.1); Sodium 135 mmol/L (136-145)
[2022-04-03 10:02] LABS: Vancomycin Trough 10.5 ug/mL (10-15)
[2022-04-03] MEDS: meropenem 1,000 MG in sodium chloride 0.9% (plus) 50 ML 100 MG IV ×2 (10:08→18:02)
--- NOTE | 2022-04-03 11:45 | PM.PN ---
Subjective Subjective: Patient seen and examined. Reports that his pain is much improved. Denies nausea or vomiting. positive bowel movement. Repeat CT shows catheter tip outside of abscess. Vitals/I&O/Wt Last Vital Signs Temp 99.3 F 04/03/22 07:38 Pulse 82 04/03/22 07:40 Resp 18 04/03/22 07:40 BP 168/90 04/03/22 07:38 Pulse Ox 94 04/03/22 07:40 O2 Del Method 04/03/22 07:40 O2 Flow Rate 6 04/02/22 08:00 04/02/22 04/03/22 04/03/22 22:59 06:59 14:59 Intake Total 780 / 1610 350 / 350 Output Total 700 / 700 600 / 1300 300 / 300 Balance 80 / 910 -600 / 310 50 / 50 Physical Exam Narrative: Gen: NAD, AAOx3 Abdomen, S, ND, tender RLQ, no guarding or rebound Data 04/03/22 08:47 04/03/22 08:47 Micro: Microbiology 03/30/22 14:45 Gram Stain - Final Ankle - Abdominal Body Fluid Culture - Final Enterobacter aerogenes Escherichia coli A&P Assessment and plan (1) Intra-abdominal abscess: Status post laparoscopic appendectomy on 03/15/2022 Attestations Medical Necessity Statement*: Continue antibiotics Drain to be replaced at 9 AM tomorrow Regular diet, n.p.o. after midnight If he remains vitally stable, he may be able to go home tomorrow after his drain Coding Level of Care Code Acute Search Engine Optimization Analyst for [employer] Diagnoses Intra-abdominal abscess K65.1
--- NOTE | 2022-04-03 12:13 | PC.SOCIAL ---
IMM Update pg 2 of IMM updated and reviewed w/ patient. Copy provided and Copy in chart dated, and initialed.
[2022-04-03] MEDS: potassium chloride ER 20 mEq Tablet 40 MEQ PO (15:02)
--- NOTE | 2022-04-03 15:41 | P.PN_ITS ---
Subjective Subjective: Patient was seen this morning, at bedside, patient's frustrated that he is taken this long to get his drain fixed, he denies any fevers, no chills, no nausea, no vomiting, I discussed with him in detail his clinical status -Patient had a drain placed for intra-abdominal abscess, -Unfortunately the drain has migrated and now is in the abdominal wall -Initially when the drain was placed, it was thick viscous, 3 cc was removed, since then patient tells me that he has not noticed any significant drainage -He tells me he feels a lot better, no fevers overnight, nausea, vomiting, no abdominal pain -I advised him that we will attempt drain placement tomorrow, as the size abdominal abscess is still about 3 cm, and we should attempt at least place a drain and see if it drains -If drain placement is successful that we can certainly discharge home with oral antibiotics -If drains placement is not successful then he really has 2 options -The first option is to go for abdominal washout, this is a surgical procedure, and we will have to discuss with the surgeon more detail, but this would give him the best chance for optimal outcome for his abdominal abscess -However patient is not keen on having surgery he does not want to have anymore surgery he tells me -The second option is to treat him with oral antibiotics for at least 2 weeks. IV antibiotics would be ideal however his cultures showed sensitivity to p.o. antibiotics we could do a trial of oral antibiotics for 2 weeks and repeat a CAT scan in 2 weeks and see if the abscess size has increased or decreased and then decide if we wanted to again to try to place a drain and or place a PICC line for at least 6 weeks of IV antibiotic therapy -The second option is associate with increased risk of complications later on in life such as adhesions, bowel obstructions -After discussing the risk and benefits, he voiced understanding, all questions answered, he wants to go proceed with nonsurgical option if drain placement is not successful Vitals/I&O/Wt Last Vital Signs Temp 98.5 F 04/03/22 12:00 Pulse 80 04/03/22 12:00 Resp 18 04/03/22 12:00 BP 173/93 04/03/22 12:00 Pulse Ox 96 04/03/22 12:00 O2 Del Method 04/03/22 12:00 O2 Flow Rate 6 04/02/22 08:00 04/03/22 04/03/22 04/03/22 06:59 14:59 22:59 Intake Total 1080 / 1080 Output Total 600 / 1300 300 / 300 Balance -600 / 310 780 / 780 Physical Exam Const: COMMON NORMALS: no acute distress and patient oriented x3 Resp: COMMON NORMALS: normal respiratory effort, No retractions, No use of accessory muscles and clear to auscultation bilaterally AUSCULTATION: clear to auscultation bilaterally Cardio: COMMON NORMALS: regular rate, regular rhythm, S1 normal heart sound p resent and S2 normal heart sound present RATE: regular rate RHYTHM: regular rhythm HEART SOUNDS: S1 normal heart sound present and S2 normal heart sound present GI: COMMON NORMALS: Normal to inspection, nondistended, normoactive bowel sounds present and non-tender OTHER: Drain in place Extremity: COMMON NORMALS: no pedal edema Neuro: COMMON NORMALS: patient oriented x3 Psych: COMMON NORMALS: mental status grossly normal Data 04/03/22 08:47 04/03/22 08:47 Micro: Microbiology 03/30/22 14:45 Gram Stain - Final Ankle - Abdominal Body Fluid Culture - Final Enterobacter aerogenes Escherichia coli A&P Assessment and plan (1) Intra-abdominal abscess: Leukocytosis improved to 13.8 Status post drain placement on 03/30 Continue flushing drain twice daily Fluid culture showing Enterobacter species, E. coli, sensitive to Zosyn Continue meropenem Continue vancomycin Likely discharge on Cipro and Flagyl N.p.o. midnight, for drain placement tomorrow General surgery on consult (2) History of laparoscopic appendectomy: As above (3) Coronary artery disease: Continue statin Holding aspirin and Plavix in case he needs a washout (4) Hypertension: Continue metoprolol Continue BLANKA inhibitor Plan DVT prophylaxis: SCD CODE STATUS: full code Attestations Medical Necessity Statement*: Patient requires hospitalization for intra- abdominal abscess Coding Level of Care Code Acute Desktop Publishing Specialist for [facility] Diagnoses Intra-abdominal abscess K65.1 History of laparoscopic appendectomy Z90.49 Coronary artery disease I25.10 Hypertension I10
[2022-04-03] MEDS: atorvastatin 40 mg Tablet 20 MG PO (20:12)
[2022-04-03] MEDS: acetaminophen 500 mg Tablet PO (20:14)
[2022-04-04] VITALS (19 sets, daily range): BP systolic 144–185; BP diastolic 78–125; PULSE 68–80; RESP 12–25; TEMP 36.4–36.9; O2SAT 91–100
[2022-04-04] MEDS: vancomycin 1,000 MG in sodium chloride 0.9% 250 ML 250 MG IV ×2 (02:56→10:46)
[2022-04-04] MEDS: meropenem 1,000 MG in sodium chloride 0.9% (plus) 50 ML 100 MG IV ×2 (03:58→10:26)
[2022-04-04 05:13] LABS: Basophils # 0.1 10^3/uL (0.0-0.1); Basophils % 0.5 %; Eosinophils # 0.1 10^3/uL (0.0-0.8); Hematocrit 33.4 % (42.0-52.0); Hemoglobin 11.2 g/dL (11.7-16.6); Lymphocytes # 1.9 10^3/uL (0.8-4.8); Lymphocytes % 14.3 %; Mean Corpuscular HGB Conc 33.5 g/dL (30.0-36.0); Mean Corpuscular Hemoglobin 29.6 pg (28.0-34.0); Mean Corpuscular Volume 88.1 fl (80-94); Mean Platelet Volume 8.8 fL (7.4-10.4); Monocytes % 7.4 %; Neutrophils # 9.84 10^3/uL (1.8-7.7); Neutrophils % 76.3 %; Nucleated Red Blood Cells % 0 %; Platelet Count 374 10^3/cmm (130-400); Red Blood Count 3.79 10^6/uL (4.1-5.3); Red Cell Distribution Width 12.5 % (12.1-15.1); White Blood Count 12.9 10^3/uL (4.0-10.0)
[2022-04-04 05:34] LABS: Alanine Aminotransferase 27 U/L (0-41); Albumin Level 2.9 g/dL (3.5-5.2); Alkaline Phosphatase 91 U/L (40-130); Aspartate Amino Transferase 26 U/L (0-40); Blood Urea Nitrogen 9 mg/dL (8-23); C Reactive Protein 128.9 mg/L (0.0-4.9); Calcium 8.9 mg/dL (8.5-10.5); Carbon Dioxide 23 mmol/L (22-29); Chloride 106 mmol/L (98-107); Globulin 2.5 g/dL (1.3-4.6); Glomerular Filtration Rate 164.9 mL/min (90-130); Glucose 94 mg/dL (65-115); Magnesium 2.2 mg/dL (1.7-2.3); Osmolality Calculated 288 mOsm/kg (285-295); Phosphorus 2.6 mg/dL (2.5-4.5); Sodium 140 mmol/L (136-145); Total Bilirubin 0.4 mg/dL (0.15-1.2); Total Protein 5.4 g/dL (6.6-8.7)
[2022-04-04 05:37] LABS: Anion Gap 15.2 (5-19); Potassium 4.2 mmol/L (3.5-5.1)
[2022-04-04 05:41] LABS: Procalcitonin 0.07 ng/mL (0-0.5)
[2022-04-04] MEDS: lisinopril 20 mg Tablet 40 MG PO (08:22)
[2022-04-04] MEDS: metoprolol tartrate 25 mg Tablet PO (08:23)
[2022-04-04] MEDS: sennosides-docusate Tablet 1 TAB PO (08:23)
--- NOTE | 2022-04-04 08:30 | CT_ITS ---
WS: [id number] CT-GUIDED BIOPSY PIGTAIL PLACEMENT ABSCESS RIGHT LOWER QUADRANT. HISTORY: Replacement of the drain that was initially inserted on 03/30/2022. This drain became pulled from the abscess cavity. DLP: 1860.[address] scans at [facility] use at least one of these dose optimization techniques: automated e xposure control; mA and/or kV adjustment per patient size (includes targeted exams where dose is matc hed to clinical indication); or iterative reconstruction. Prior imaging studies: History and physical are reviewed. Procedure, risks and complications were exp lained to the patient. Consent is obtained. The drainage catheter that was placed on 03/30/2022 is still present within the abdominal wall. This w as removed prior to the new catheter placement. I discussed this case with Dr. Floyd before proceeding with pigtail placement. There is a very poo rly formed collection in the RIGHT lower quadrant. There is no wall encasing this lesion. This is a v melissa poorly formed collection. There is a new collection also more phlegmonous in appearance with air along the RIGHT psoas muscle. Prior imaging studies are reviewed. This pigtail catheter may not remai n well seated either as there is no well formed collection. As indicated on the prior examination is very little aspirate or drainage from the catheter. A 10 Malagasy pigtail catheter is inserted under fluoroscopic guidance. This catheter is coiled within the ill formed collection with air at the appendectomy site. After placing this drain only dark red b lood was aspirated. No pus was evident. Due to the very small size of this abscess cavity part of the pigtail is on the edge or just outside of the collection. Drainage catheter is connected to a vacuum bag. Patient tolerated this procedure well. Conscious sedation was utilized.
[2022-04-04] MEDS: sodium chloride 0.9% 1,000 ML 30 ML IV (09:05)
[2022-04-04] MEDS: fentaNYL 50 mcg/mL INJ 2mL 25 MCG IVP ×4 (09:09→09:45)
[2022-04-04] MEDS: midazolam 1 mg/mL INJ 2 mL IVP ×4 (09:10→09:44)
[2022-04-04] MEDS: HYDROcodone-acetaminophen 5-325 mg Tablet 1 TAB PO (10:45)
--- NOTE | 2022-04-04 12:40 | P.DS_ITS ---
Discharge Providers Date of Admission: 03/29/22 19:26 Date of Discharge: April 04, 2022 Attending Provider at Admission: Jacoby Sahu MD Attending Provider at Discharge: Macho Ugalde MD Primary Care Provider: Karla Frazier MD Diagnoses at Discharge Discharge Diagnosis (1) Intra-abdominal abscess: Status: Acute (2) History of laparoscopic appendectomy: Status: Acute (3) Coronary artery disease: Status: Acute (4) Hypertension: Status: Acute Reason for Visit Reason for Visit: abnormal CS Hospital Course Hospital Course Freddy Eagle is a 71 year old male who was admitted on 03/15 by general surgery for management of acute appendicitis, status post laparoscopic appendectomy by Dr. Floyd, he follow-up with Dr. Floyd in the clinic, he was getting Augmentin as well, presenting today after abnormal finding of CT abdomen pelvis, patient was prescribed Augmentin because he was experiencing right lower quadrant pain for last 3 to 4 days, today CT abdomen pelvis was completed that prompted his visit to the ER. Considering that he never felt better after appendectomy, his surgical site was always sore, he never experienced any fever, nausea, vomiting, diarrhea.? He has finished his Augmentin course of 2 weeks. Patient takes aspirin and Plavix last coronary artery stent was placed roughly 6 years ago, no active chest pain or shortness of breath, last bowel movement was today which was regular CT abdomen showed right lower quadrant abscess 5 x 3.8 cm RIGHT lower quadrant abscess measures 5.2 x 3.8 cm at the site of the recent appendectomy. Small amount of pericecal inflammatory changes and a few small lymph nodes General surgeon has recommended admitting this patient to hospital service, I have started patient on vancomycin, she has received 1 dose of Zosyn, no active signs of sepsis, I do not see any signs of fever, mild leukocytosis noted Patient was admitted, for intra-abdominal abscess status post laparoscopic appendectomy, received broad-spectrum antibiotic therapy, drain placement by IR, blood cultures negative to date, cultures from drain showed Enterobacter species and E. coli. Patient's drain migrated to abdominal wall and required to be replaced by radiology. Tolerated procedure well, draining serosanguineous fluid/bloody fluid, remained afebrile, ambulatory, no significant abdominal pain. Patient will be discharged with drain in place, with 2 weeks of Cipro and Flagyl therapy, repeat CT scan on Sunday as per general surgery and follow-up with general surgery on Sunday. If he were to have any worsening abdominal pain, fevers, go to the emergency room. Physical Exam Const: COMMON NORMALS: no acute distress and patient oriented x3 Resp: COMMON NORMALS: normal respiratory effort, No retractions, No use of accessory muscles and clear to auscultation bilaterally AUSCULTATION: clear to auscultation bilaterally Cardio: COMMON NORMALS: regular rate, regular rhythm, S1 normal heart sound present and S2 normal heart sound present RATE: regular rate RHYTHM: reg ular rhythm HEART SOUNDS: S1 normal heart sound present and S2 normal heart sound present GI: COMMON NORMALS: Normal to inspection, nondistended, normoactive bowel sounds present and non-tender OTHER: Drain in place, Extremity: COMMON NORMALS: no pedal edema Neuro: COMMON NORMALS: patient oriented x3 Psych: COMMON NORMALS: mental status grossly normal Discharge Data Studies Completed and Pending Completed Studies During Hospitalization Category Date Time Status CT chest abdomen pelvis [CT chest abd pel w con*] Stat Cat Scan 04/02/22 08:[address] drain appendix absces [id number] Routine Cat Scan 03/30/22 13:00 Completed Pending at discharge Category Date Time Status CT guided drainage [id number] Routine Cat Scan 04/04/22 08:30 Taken C Reactive Protein AM LABS Lab 04/05/22 04:00 Ordered C Reactive Protein AM LABS Lab 04/06/22 04:00 Ordered Complete Blood Count w/Auto AM LABS Lab 04/05/22 04:00 Ordered Complete Blood Count w/Auto AM LABS Lab 04/06/22 04:00 Ordered Comprehensive Metabolic Panel AM LABS Lab 04/05/22 04:00 Ordered Comprehensive Metabolic Panel AM LABS Lab 04/06/22 04:00 Ordered Magnesium AM LABS Lab 04/05/22 04:00 Ordered Magnesium AM LABS Lab 04/06/22 04:00 Ordered Phosphorus AM LABS Lab 04/05/22 04:00 Ordered Phosphorus AM LABS Lab 04/06/22 04:00 Ordered Procalcitonin AM LABS Lab 04/05/22 04:00 Ordered Procalcitonin AM LABS Lab 04/06/22 04:00 Ordered Radiology Impressions Chest/Abdomen/Pelvis CT 04/02/22 08:46 IMPRESSION: No acute thoracic abnormality identified. IMPRESSION: 1. Interval dislodgement of previously placed right lower quadrant pericecal abscess drain. The drain tip is now within the abdominopelvic wall. 2. The previously noted abscess has slightly decreased in size. 3. Persistent inflammatory changes in the right lower quadrant with subsequent development of inflammatory changes in the right perinephric region. 4. Endothelial hyperemia in the distal right ureter but no definitive signs of pyelonephritis. 5. Colonic diverticulosis without signs of acute diverticulitis. COMMENTS: Consistent with the [employer]'s Incidental Findings Committee white paper (J Am Aleja Radiol 2018): Any incidental renal lesion less than 1 cm or classified as too small to characterize, or any incidental cystic renal lesion characterized as simple-appearing, is likely benign. No follow-up imaging is recommended for these lesions per consensus recommendations based on imaging criteria. ADDENDUM: 04/02/22 1128 THIS REPORT CONTAINS FINDINGS THAT MAY BE CRITICAL TO PATIENT CARE. The findings were verbally communicated via telephone conference with Chris Pillai at 11:26 AM [employer] on 04/02/2022. The findings were acknowledged and understood. Laboratory Results WBC 12.9 10^3/uL (4.0-10.0) H 04/04/22 04:36 RBC 3.79 10^6/uL (4.1-5.3) L 04/04/22 04:36 Hgb 11.2 g/dL (11.7-16.6) L 04/04/22 04:36 Hct 33.4 % (42.0-52.0) L 04/04/22 04:36 MCV 88.1 fl (80-94) 04/04/22 04:36 MCH 29.6 pg (28.0-34.0) 04/04/22 04:36 MCHC 33.5 g/dL (30.0-36.0) 04/04/22 04:36 RDW 12.5 % (12.1-15.1) 04/04/22 04:36 Plt Count 374 10^3/cmm (130-400) 04/04/22 04:36 MPV 8.8 fL (7.4-10.4) 04/04/22 04:36 Neut % (Auto) 76.3 % 04/04/22 04:36 Lymph % (Auto) 14.3 % 04/04/22 04:36 Tillman % (Auto) 7.4 % 04/04/22 04:36 Eos % (Auto) 1.0 % 04/04/22 04:36 Baso % (Auto) 0.5 % 04/04/22 04:36 Neut # (Auto) 9.84 10^3/uL (1.8-7.7) H 04/04/22 04:36 Lymph # (Auto) 1.9 10^3/uL (0.8-4.8) 04/04/22 04:36 Tillman # (Auto) 1.0 10^3/uL (0.2-0.9) H 04/04/22 04:36 Eos # (Auto) 0.1 10^3/uL (0.0-0.8) 04/04/22 04:36 Baso # (Auto) 0.1 10^3/uL (0.0-0.1) 04/04/22 04:36 Nucleated RBC % (auto) 0 % 04/04/22 04:36 Nucleated RBCs # 0.0 /100WBC 04/04/22 04:36 PT 14.00 SECONDS (12.1-14.9) 03/30/22 11:00 INR 1.05 (0.8-1.2) 03/30/22 11:00 Sodium 140 mmol/L (136-145) 04/04/22 04:36 Potassium 4.2 mmol/L (3.5-5.1) 04/04/22 04:36 Chloride 106 mmol/L (98-107) 04/04/22 04:36 Carbon Dioxide 23 mmol/L (22-29) 04/04/22 04:36 Anion Gap 15.2 (5-19) 04/04/22 04:36 BUN 9 mg/dL (8-23) 04/04/22 04:36 Creatinine 0.5 mg/dL (0.7-1.2) L 04/04/22 04:36 GFR Calculation 164.9 mL/min (90-130) H 04/04/22 04:36 Glucose 94 mg/dL (65-115) 04/04/22 04:36 Calculated Osmolality 288 mOsm/kg (285-295) 04/04/22 04:36 Lactic Acid 1.4 mmol/L (0.5-2.2) 03/29/22 15:30 Lactate 1.8 mmol/L (0.5-2.2) 03/30/22 04:37 Calcium 8.9 mg/dL (8.5-10.5) 04/04/22 04:36 Phosphorus 2.6 mg/dL (2.5-4.5) 04/04/22 04:36 Magnesium 2.2 mg/dL (1.7-2.3) 04/04/22 04:36 Total Bilirubin 0.4 mg/dL (0.15-1.2) 04/04/22 04:36 AST 26 U/L (0-40) 04/04/22 04:36 ALT 27 U/L (0-41) 04/04/22 04:36 Alkaline Phosphatase 91 U/L (40-130) 04/04/22 04:36 Troponin T Gen 5 ng/L 11 ng/L (0-15) 04/02/22 17:51 C-Reactive Protein 128.9 mg/L (0.0-4.9) H 04/04/22 04:36 Total Protein 5.4 g/dL (6.6-8.7) L 04/04/22 04:36 Albumin 2.9 g/dL (3.5-5.2) L 04/04/22 04:36 Globulin 2.5 g/dL (1.3-4.6) 04/04/22 04:36 Lipase 30 U/L (13-60) 03/29/22 15:30 Procalcitonin 0.07 ng/mL (0-0.5) 04/04/22 04:36 Urine Color Yellow (Yellow) 03/29/22 15:25 Urine Appearance Clear (CLEAR) 03/29/22 15:25 Urine pH 5 (5-7) 03/29/22 15:25 Ur Specific [place] 1.010 (1.005-1.030) 03/29/22 15:25 Urine Protein Neg (Negative) 03/29/22 15:25 Urine Glucose (UA) Norm (Normal) 03/29/22 15:25 Urine Ketones Negative (Negative) 03/29/22 15:25 Urine Blood Neg (Negative) 03/29/22 15:25 Urine Nitrate Negative (Negative) 03/29/22 15:25 Urine Bilirubin Neg (Negative) 03/29/22 15:25 Urine Urobilinogen Norm mg/dL (Negative) 03/29/22 15:25 Ur Leukocyte Esterase Negative (Negative) 03/29/22 15:25 Vancomycin Trough 10.5 ug/mL (10-15) 04/03/22 08:47 Vitals Last Vital Signs Temp 98.1 F 04/04/22 12:00 Pulse 79 04/04/22 12:00 Resp 16 04/04/22 12:00 BP 159/78 04/04/22 12:00 Pulse Ox 96 04/04/22 12:00 O2 Del Method 04/04/22 12:00 O2 Flow Rate 6 04/04/22 09:50 Discharge Plan Discharge Patient Disposition: Home Condition: Stable Prescriptions: New hydrocodone-acetaminophen 5-325 mg Tablet 1 tab PO Q8H PRN (Reason: Moderate Pain) 5 Days Qty: 15 0RF ciprofloxacin HCl [Cipro] 500 mg tablet 500 mg PO Q12H 14 Days Qty: 28 0RF metronidazole 500 mg tablet 500 mg PO Q8H 14 Days Qty: 42 0RF Continued clopidogrel 75 mg tablet 75 mg PO DAILY Qty: 90 3RF Hold Instructions: Resume on 03/18/22. lisinopril 40 mg tablet 40 mg PO DAILY Qty: 90 3RF metoprolol tartrate 25 mg tablet 25 mg PO BID Qty: 180 3RF aspirin 81 mg tablet,delayed release (DR/EC) 81 mg PO DAILY Qty: 90 3RF vitamin E 268 mg (400 unit) Capsule 268 mg PO DAILY cholecalciferol (vitamin D3) [Vitamin D3] 25 mcg (1,000 unit) Capsule 25 mcg PO DAILY simvastatin 40 mg Tablet 40 mg PO BEDTIME Discontinued amoxicillin-pot clavulanate 875-125 mg tablet 1 tab PO BID Qty: 26 0RF Rx Instructions: patient states I had one pill left, tonight would've been my last dose. Discharge Orders: Discharge Order (Routine); Ordered 04/04/22 Ordered By: Macho Ugalde Other Ambulatory Orders: CT abdomen pelvis w con* [id number] (Routine) Timeframe: 20220410 Facility: [facility] - Location: [facility] Ordered By: Macho Tram Referrals: Flynn Floyd DO [Physician] - 04/11/22 Ara Willingham MD [Hospitalist] - 2 weeks Karla Frazier MD [Primary Care Provider] - Discharge Diet: Cardiac Discharge Activity: Resume usual activity Patient Instructions: Opioid Safety Activity Restrictions/Additional Instructions: - Please take antibiotics as prescribed -Please take care of the drain, do not pull or place tension on it, placed to gravity -Please follow-up on Sunday for CT scan -Follow-up with Dr. Floyd on Sunday -If any worsening abdominal pain fevers go to emergency room -Please use opiates sparingly for pain, do not drive or operate heavy machinery or drink while taking medication Discharge Attestations Time Spent in Discharge Care*: less than 30 min Quality Metrics Clinical Quality Measures [ No reported AMI, CVA or VTE this stay] Coding Level of Care Code Acute g FW ME note Diagnoses Intra-abdominal abscess K65.1 History of laparoscopic appendectomy Z90.49 Coronary artery disease I25.10 Hypertension I10
--- NOTE | 2022-04-04 13:00 | CT_ITS ---
WS: [id number] CT-GUIDED BIOPSY PIGTAIL PLACEMENT ABSCESS RIGHT LOWER QUADRANT. HISTORY: Replacement of the drain that was initially inserted on 03/30/2022. This drain became pulled from the abscess cavity. DLP: 1860.[address] scans at [facility] use at least one of these dose optimization techniques: automated e xposure control; mA and/or kV adjustment per patient size (includes targeted exams where dose is matc hed to clinical indication); or iterative reconstruction. Prior imaging studies: History and physical are reviewed. Procedure, risks and complications were exp lained to the patient. Consent is obtained. The drainage catheter that was placed on 03/30/2022 is still present within the abdominal wall. This w as removed prior to the new catheter placement. I discussed this case with Dr. Floyd before proceeding with pigtail placement. There is a very poo rly formed collection in the RIGHT lower quadrant. There is no wall encasing this lesion. This is a v melissa poorly formed collection. There is a new collection also more phlegmonous in appearance with air along the RIGHT psoas muscle. Prior imaging studies are reviewed. This pigtail catheter may not remai n well seated either as there is no well formed collection. As indicated on the prior examination is very little aspirate or drainage from the catheter. A 10 Mexican pigtail catheter is inserted under fluoroscopic guidance. This catheter is coiled within the ill formed collection with air at the appendectomy site. After placing this drain only dark red b lood was aspirated. No pus was evident. Due to the very small size of this abscess cavity part of the pigtail is on the edge or just outside of the collection. Drainage catheter is connected to a vacuum bag. Patient tolerated this procedure well. Conscious sedation was utilized. CT/CT drain appendix absces [id number] IMPRESSION: 1. 10 Mexican pigtail catheter is inserted into the ill-defined phlegmonous col lection in the RIGHT lower quadrant at the prior appendectomy site. The collect ion is smaller today than on the initial pigtail insertion. This is not a well- formed collection and this catheter may not remain within this collection. Impo rtant for no tension on this catheter. 2. Dark red blood is aspirated through the drainage catheter. No pus is eviden t. 3. Flushing of the catheter was very important in order to prevent blockage. F margarethshing every 4 to 6 hours with 10 cc of sterile saline is recommended. Use the three-way stopcock. 4. There is additional smaller collection developing along the RIGHT psoas mus alfredito containing air. This is also not well formed collection. I discussed the fi ndings of the CT with Dr. Floyd before proceeding with a drainage catheter p lacement. There does appear to be a small tract that was patent between the GI tract and the abscess cavity. Discussed post procedure orders with Avelina james [facility]. Recommend Flushing cat heter every 4 to 6 hours with 10 cc of sterile saline and recording output. If no output from this drain after 24 to 48 hours pigtail catheter should be remov ed.
== END 2022-04-04 14:04 | disposition home or self-care (01) | DRG 862 ==
LOC: ER 19:37 → MEDSURG 19:47
PROVIDERS: Internal Medicine; Physician Assistant; Radiology Neuroradiology; Admitting Provider Internal Medicine; Emergency Provider Emergency Medicine; PCP Family Medicine; Visit Provider Family Medicine
PROC: 0W9G30Z Drainage of Peritoneal Cavity with Drainage Device, Percutaneous Approach (ICD-10-PCS; CPT 75989; principal; 2022-03-30 13:00)
PROC: (CPT 75989; principal; 2022-04-04 08:30)
DX: T81.43XA Infection following a procedure, organ and space surgical site, initial encounter (principal); K65.1 Peritoneal abscess; Y83.8 Other surgical procedures as the cause of abnormal reaction of the patient, or of later complication, without mention of misadventure at the time of the procedure; Z90.49 Acquired absence of other specified parts of digestive tract; I25.10 Atherosclerotic heart disease of native coronary artery without angina pectoris; Z95.5 Presence of coronary angioplasty implant and graft; I25.2 Old myocardial infarction; Z87.891 Personal history of nicotine dependence; I10 Essential (primary) hypertension; Z79.02 Long term (current) use of antithrombotics/antiplatelets; Z79.82 Long term (current) use of aspirin
CPT/HCPCS: 12345; 36415; 49406; 71260; 74177; 75989; 80048; 80053; 80069; 80202; 81003; 83605; 83690; 83735; 84100; 84145; 84484; 85025; 85610; 86140; 87040; 87070; 87075; 87077; 87186; 87205; 93005; 96365; 96374; 96375; 96376; 99152; 99153; 99285; J0360; J1170; J2185; J2250; J2543; J3010; J3370; J7030; J7042; J7050; Q9967

== ENCOUNTER 2022-04-10 11:33 | Outpatient (CLI) | payer MEDICARE, SELFPAY ==
--- NOTE | 2022-04-10 11:42 | CT_ITS ---
WS: [id number] CT ABDOMEN AND PELVIS WITH CONTRAST HISTORY: abdominal abscess TECHNIQUE: Imaging performed of the abdomen and pelvis with IV contrast. Single phase imaging of the abdomen. Coronal and sagittal reformats are submitted. All CT scans at [facility] use at [facility] [facility] one of these dose optimization techniques: automated exposure control; mA and/or kV adjustment per patient size (includes targeted exams where dose is matched to clinical indication); or iterative re construction. IV CONTRAST: Omnipaque 350; 95 mL IV. Oral contrast: No DLP: 1151.09 mGy.cm COMPARISON: 04/04/2022 Lower thorax: Lung bases are clear. Heart is normal size. Small hiatal hernia. Liver/biliary system: Normal size with no intrahepatic dilatation. Gallbladder: Normal. No gallstones or wall thickening. No pericholecystic fluid. Pancreas: Normal size pancreas and pancreatic duct. No adjacent inflammation. Spleen: Normal size spleen. No mass or infarct. Adrenal glands: Normal. Right kidney: Normal size kidney with scattered hypodensities. Left kidney: Normal size kidney with scattered hypodensities. Aorta: Mild atherosclerosis with no aneurysm. Lymphadenopathy: None. Free fluid: None. GI tract: Normal appearance of the stomach and small bowel. Prior appendectomy. Abscess in the RIGHT lower quadrant at the appendectomy site has essentially resolved. Pigtail catheter remains in positio n and should be removed as there is no residual cavity. The previously described developing abscess a long the RIGHT psoas muscle has increased in size. There is an enhancing thin walled collection with air contacting the RIGHT psoas muscle measuring 4.7 x 3.4 cm. This was previously described but has i ncreased in size. Abdominal wall: Soft tissue infiltration of the umbilicus and along the RIGHT lateral abdominal soft tissue from the recent surgery and catheter insertion. No mass. Pelvis: Normally distended urinary bladder. No free fluid. Inguinal canals are patent bilaterally con taining fat. Bones: Unremarkable. CT/CT abdomen pelvis w con* [id number] IMPRESSION: 1. Abscess in the RIGHT lower quadrant at the prior appendectomy site has reso lved. The pigtail catheter remains at the site of the prior cavity but no resid ual cavity identified. Catheter should be removed if there has been no drainage for 24 hours. 2. Progression of the abscess along the RIGHT psoas muscle that was described on 04/04/2022. Abscess collection has become more well formed and contains air and enhancing wall. This abscess measures 4.7 x 3.4 cm.
[2022-04-10] MEDS: iohexol 350 mg/mL 500 mL Btl (per mL) IV (12:28)
== END 2022-04-10 11:34 | disposition home or self-care (01) ==
PROVIDERS: PCP Family Medicine; Visit Provider Family Medicine
DX: K65.1 Peritoneal abscess (principal); Z90.49 Acquired absence of other specified parts of digestive tract
CPT/HCPCS: 74177; Q9967

== ENCOUNTER → 2022-04-11 08:24 | Outpatient (BNVA) | payer MEDICARE, SELFPAY | PROVIDERS: PCP Family Medicine; Visit Provider Surgery | DX: Z98.890 Other specified postprocedural states (principal); K65.1 Peritoneal abscess; Z90.49 Acquired absence of other specified parts of digestive tract | CPT/HCPCS: 99024 ==

== ENCOUNTER 2022-04-11 10:32 | Day surgery (SDC) | payer MEDICARE, SELFPAY ==
[2022-04-11] VITALS (9 sets, daily range): BP systolic 122–208; BP diastolic 71–120; PULSE 69–83; RESP 16–18; TEMP 36.1–36.7; O2SAT 97–99; BMI 29.2
--- NOTE | 2022-04-11 10:19 | CT_ITS ---
WS: [id number] CT GUIDED ABSCESS DRAINAGE CATHETER PLACEMENT. HISTORY: Retroperitoneal abscess status post appendectomy. Procedure, risks, and complications are explained to the patient. Consent was obtained. Skin is clean sed with ChloraPrep and anesthetized with 1% buffered lidocaine. I discussed complications in detail with the patient. The patient is on Plavix which increases risk for bleeding. Patient and his ar e aware of this risk and this has been discussed with Dr. Floyd. Catheter placement performed with anesthesia present. With the patient in the LEFT lateral position the abscess is located along the RIGHT psoas muscle. Th is abscess contains air. Under sterile conditions and with subcutaneous lidocaine abscess cavity is a ccessed with a 17-gauge coaxial needle. Wire is exchanged through the needle. Tract is dilated. 8 Félix nch percutaneous catheter is placed with no complications. The aspirate is dark red blood. Catheter i s connected to a vacuum bag. Patient will be observed for 2 hours postprocedure to ensure no complica tions or bleeding. Specimen is collected and sent for analysis. Patient will be observed for 2 hours post procedure. Patient instructed to return to the emergency ro om if there is any complications from this procedure after discharge. CT/CT drain appendix absces [id number] IMPRESSION: 1. Uncomplicated placement 8 Nigerien pigtail catheter within the RIGHT psoas mu scle abscess. Bloody aspirate removed. 2. Recommend saline flushes to ensure there is no blockage of this drainage ca theter. 3. Patient will follow up with Dr. Floyd. 4. Specimen sent for analysis.
--- NOTE | 2022-04-11 12:22 | ANES.PREANE2 ---
Pre-Anesthetic Assessment Height/Weight: Height 1.68 m Weight 82.1 kg Operation Date: 04/11/22 12:[address] Drain Placement(Not Applicable) - DOCTOR NOT ON FILE Familial anesthetic complications: PONV Was Beta Jazmin taken within 24 hours: N/A Last intake: Intake Last Liquid Date 04/11/22 Last Liquid Time 07:00 Last Solid Date 04/11/22 Last Solid Time 04:30 Social Alcohol (1 per month) and Tobacco (recently quit 1 month prior.) Airway Submandibular: within normal limits Cervical ROM: within normal limits Mallampati: Class III Dentition: false (upper plate) Pulmonary None reported CV/HEM Stable Angina, Coronary Artery Disease (stents 2014), Hypertension and Myocardial Infarction None reported Hepatic None reported GI Gastroesophageal Reflux Disease (controlled) Metabolic Hyperlipidemia [facility] None reported Neuropsych None reported Anesthetic Plan ASA status: 3 Anesthesia: MAC Medications/Allergies Home Medications Medication Instructions Recorded Confirmed Last Taken Type aspirin 81 mg tablet,delayed 81 mg PO DAILY #90 tabs 01/01/20 04/11/22 04/11/22 Rx release clopidogrel 75 mg tablet 75 mg PO DAILY #90 tabs 07/07/20 04/11/22 04/10/22 Rx lisinopril 40 mg tablet 40 mg PO DAILY #90 tabs 07/07/20 04/11/22 04/11/22 Rx metoprolol tartrate 25 mg tablet 25 mg PO BID #180 tabs 07/07/20 04/11/22 04/10/22 Rx cholecalciferol (vitamin D3) 25 25 mcg PO DAILY 03/15/22 04/11/22 03/29/22 History mcg (1,000 unit) capsule (Vitamin D3) vitamin E 268 mg (400 unit) capsule 268 mg PO DAILY 03/15/22 04/11/22 03/29/22 History simvastatin 40 mg tablet 40 mg PO BEDTIME 03/29/22 04/11/22 04/10/22 History ciprofloxacin HCl 500 mg tablet 500 mg PO Q12H 2 weeks #28 tabs 04/04/22 04/11/22 04/11/22 Rx (Cipro) metronidazole 500 mg tablet 500 mg PO Q8H 14 days #42 tabs 04/04/22 04/11/22 04/10/22 Rx Allergies Allergy/AdvReac Type Severity Reaction Status Date / Time No Known Allergies Allergy Verified 04/11/22 10:46 [facility] Anesthesia Medical History Coronary artery disease Glucose intolerance Hypertension Myocardial infarction Surgical History History of laparoscopic appendectomy S/P PTCA (percutaneous transluminal coronary angioplasty) Family History Other Cancer Social History Smoking and tobacco status: former smoker Household members: spouse Marital status: service: No Current occupational status: retired Current occupation: [employer] Data Anesthesia Cardiac Studies: No Data to Display
[2022-04-11] MEDS: sodium chloride 0.9% 1,000 ML 30 ML IV (12:40)
--- NOTE | 2022-04-11 14:41 | ANE.PACU2 ---
Inpatient post-anesthesia follow up: Airway intact: Yes Vital signs: Temperature 98.0 F Pulse Rate 77 Respiratory Rate 16 Blood Pressure 189/115 Pulse Oximetry 97 Oxygen Delivery Me thod Room Air Oxygen Flow Rate Fraction of Inspir ed Oxygen Hydration adequate: Yes Nausea and vomiting: No Pain level: 3 Mental status: Baseline
== END 2022-04-11 15:34 | disposition home or self-care (01) ==
PROVIDERS: PCP Family Medicine; Visit Provider Surgery
PROC: (CPT 75989; principal; 2022-04-11 12:30)
DX: K68.11 Postprocedural retroperitoneal abscess (principal); I25.110 Atherosclerotic heart disease of native coronary artery with unstable angina pectoris; Z95.5 Presence of coronary angioplasty implant and graft; I11.0 Hypertensive heart disease with heart failure; I50.9 Heart failure, unspecified; K21.9 Gastro-esophageal reflux disease without esophagitis; E78.5 Hyperlipidemia, unspecified; Z79.82 Long term (current) use of aspirin; I25.2 Old myocardial infarction; Z87.891 Personal history of nicotine dependence
CPT/HCPCS: 49406; 87070; 87075; 87077; 87186; 87205; J2704; J3010; J3490; J7030

== ENCOUNTER → 2022-04-18 09:49 | Outpatient (BNVA) | payer MEDICARE, SELFPAY | PROVIDERS: PCP Family Medicine; Visit Provider Surgery | DX: Z98.890 Other specified postprocedural states (principal); K65.1 Peritoneal abscess; Z90.49 Acquired absence of other specified parts of digestive tract | CPT/HCPCS: 99024 ==

== ENCOUNTER 2024-05-26 11:59 | Outpatient (CLI) | payer MEDICARE, SELFPAY ==
--- NOTE | 2024-05-26 12:15 | CT_ITS ---
WS: [id number] LDCT LUNG CANCER SCREENING HISTORY: dexter dep; 55 pk yr hx; screening TECHNIQUE: Axial imaging performed from the apices to 1 cm below the costophrenic angles. Coronal and sagittal reformats are submitted with axial MIP series. All CT scans at [facility] use at least one of these dose optimization techniques: automated exposure control; mA and/or kV adjustment per patient size (includes targeted exams where dose is matched to clinical indication); or iterativ e reconstruction. DLP: 79.30 mGy.cm DIvol: Mean CTDIvol: 1.80 (mGy) COMPARISON: None available. Diagnostic quality: Satisfactory Lungs: No pulmonary mass or nodule. No pneumonia. No endobronchial lesions. Heart: Normal size heart with no pericardial effusion.. Coronary artery calcifications. Other findings: Mild atherosclerosis aorta. No aneurysm. Normal size pulmonary artery. Bilateral gyne comastia. No adrenal mass. CT/CT lung screening [id number] IMPRESSION: LUNG-RADS: 1-Negative FOLLOW UP: 12 Month: Continue annual screening with LDCT OTHER FINDINGS (S MODIFIER): None.
== END 2024-05-26 12:00 | disposition home or self-care (01) ==
PROVIDERS: PCP Family Medicine; Visit Provider Family Medicine
DX: Z12.2 Encounter for screening for malignant neoplasm of respiratory organs (principal); F17.210 Nicotine dependence, cigarettes, uncomplicated; I25.10 Atherosclerotic heart disease of native coronary artery without angina pectoris; I70.0 Atherosclerosis of aorta; N62 Hypertrophy of breast
CPT/HCPCS: 71271

== ENCOUNTER 2024-07-24 11:02 | Outpatient (CLI) | payer MEDICARE, SELFPAY ==
--- NOTE | 2024-07-24 11:07 | XR_ITS ---
WS: [id number] XR lumbar spine 2-3V* [id number] REASON FOR EXAM: low back pain w/ R sciatica X 6 wks FINDINGS: Relatively normal lumbar curvatures. No significant vertebral body compression deformity and no focal vertebral body lesion. Mild to moderate vertebral body osteophytosis L1-S1. Mild narrowing of the intervertebral disc spaces L1-S1. No spondylolysis. No significant spondylolisthesis. Mild degenerative arthropathy in the facet joints L4-S1. XR/XR lumbar spine 2-3V* [id number] IMPRESSION: Mild degenerative spondylosis of the lumbar spine for age.
== END 2024-07-24 11:03 | disposition home or self-care (01) ==
PROVIDERS: PCP Family Medicine; Visit Provider Family Medicine
DX: M54.41 Lumbago with sciatica, right side (principal); I10 Essential (primary) hypertension; E78.00 Pure hypercholesterolemia, unspecified; R73.01 Impaired fasting glucose; E53.8 Deficiency of other specified B group vitamins; K21.9 Gastro-esophageal reflux disease without esophagitis; I21.9 Acute myocardial infarction, unspecified
CPT/HCPCS: 72100; 80053; 80061; 82607; 83036; 83735; 84443; 85025

== ENCOUNTER → 2024-11-07 12:20 | Outpatient (BNVA) | payer MEDICARE, SELFPAY | PROVIDERS: PCP Family Medicine; Visit Provider Family Medicine | DX: R11.2 Nausea with vomiting, unspecified (principal); R10.9 Unspecified abdominal pain; R19.7 Diarrhea, unspecified | CPT/HCPCS: 80053; 83690; 85025 ==